=== PATIENT | male | born 1930 | race Caucasian/White ===

== ENCOUNTER 2016-12-16 07:01 | Inpatient (IN) | payer MEDICARE ==
[~2016-12-16] VITALS: Ht 185.4 cm; Wt 122.5 kg
[~2016-12-16 07:01] MED LIST: ANECREAM5 GM TOP; ANUSOL-HC25 MG PR; CELEBREX200 MG PO; COLACE100 MG PO; COUMADIN5 MG PO; KEFLEX500 MG PO; LEVOTHYROXINE50 MCG PO; METOPROLOL SUCC50 MG PO; METOPROLOL TART25 MG; TRIAMTERENE-HC1 EAC3 PO; WARFARIN SODIU2.5 MG PO
--- NOTE | 2016-12-16 11:27 | NUR ---
PATIENT TO FLOOR FROM ED. DR. GARAY FOUND HX OF SMALL BOWEL OBSTRUCTION, SENT PATIENT FOR KUB RIGHT AWAY AND MADE PATIENT NPO. IMAGING NEGATIVE FOR BOWEL OBSTRUCTION AND PATIENT MADE REGULAR DIET AGAIN. APPEARS TO HAVE PAIN WITH TRANSFERING, VOIDING WELL. NS @125 ML/HR. EATING WELL, NO COMPLAINTS OF NAUSEA OR VOMITING. VS STABLE. SON IN ROOM AT THIS TIME. PATIENT ALERT TO PERSON PLACE AND TIME, HOWEVER POOR HISTORIAN. SKIN INTACT. LAST BM TODAY.
--- NOTE | 2016-12-16 12:37 | EKG ---
[facility] [address] [place], [place] [address] Signed Atrial fibrillation Abnormal ECG No previous ECGs available Confirmed by ANDREW HANCOCK MD ([id number]) on 12/16/2016 12:37:34 PM Electronically Signed By: ANDREW HANCOCK MD 12/16/16 1237 PATIENT NAME: MECCA BENAVIDES JR COST Electrocardiogram DATE OF : 30 PHYSICIAN: ANDREW HANCOCK MD REPORT #: [id number] REPORT IS CONFIDENTIAL AND NOT TO BE RELEASED WITHOUT AUTHORIZATION
--- NOTE | 2016-12-16 14:41 | NUR ---
PT IS SITTING UP IN BED WITH CALL LIGHT IN REACH PT DID NOT EAT MUCH LUNCH BUT ASKED FOR SOME BROTH.
--- NOTE | 2016-12-16 16:27 | NUR ---
Medications reconciled by pharmacist with pharmacy records and patient interview. Patient chronically takes warfarin 2.5mg daily. INR will be monitored by pharmacist
--- NOTE | 2016-12-16 17:03 | NUR ---
PATIENT RESTING IN BED WITH EYES CLOSED, COMPLAINTS OF NOISES IN ROOM. ORIENTED PATIENT TO SOUNDS IN ROOM. APPEARS AAOX3. PATIENT HAS NO COMPLAINTS OF PAIN OR DISCOMFORT. APPEARS COMFORTBEL. TOOK DINNER ORDER.
--- NOTE | 2016-12-16 18:24 | NUR ---
PATIENT TO FLOOR FROM ED, HAS BEEN TOLERATING REG DIET WITH NO NAUSEA OR VOMITING. VOIDING WELL. LUNG SOUNDS CLEAR. IV INFUSING AT 125ML/HR. HAS BEEN CALLING APROPRIATLEY, HOWEVER HAS MOMENTS OF CONFUSION, PLACED BA ON. FAMILY HAS BEEN WITH PATIENT MOST OF DAY. IMAGING NEGATIVE FOR SMALL BOWEL OBSTRUCTIONS, ECHOCARDIOGRAPHY [id number]
--- NOTE | 2016-12-16 18:29 | NUR ---
PT USED BATHROOM THEN RETURNED TO BED PT ASKED FOR LIGHT TO BE TURNED OFF AND BLINDS TO BE CLOSED SO HE COULD SLEEP
--- NOTE | 2016-12-16 19:46 | NUR ---
CONTACTED DR. HANCOCK AND REPORTED PATIENT DECREASE IN COGNITION, APPEARS TO BE VERY CONFUSED, PATIENT STATES " HOW DID YOU GUYS GET TO MY HOUSE?" PATIENT APPEARS CONCERNED. REORIENTED PATIENT TO PERSON PLACE AND TIME. FORGETS WITHINN TWO MINUTES. NEXT SHIFT RN IN ROOM AT THIS TIME, AND AWARE. FOUND IV FLUIDS DISCONNECTED ON THE FLOOR. TOWEL LIGHTLY SATURATED WITH IV FLUIDS. CLEANSED WITH ALCOHOL AND RECONNECTED AND WRAPPED WITH GAUZE.
--- NOTE | 2016-12-16 19:58 | NUR ---
PT WOKE WHEN RECIEVING BEDSIDE REPORT. PT CONFUSED. DISORIENTED TO TIME, PLACE, AND SITUATION. PT PLEASENT, WOULD RE-ORIENT FOR JUST A COUPLE MINUTES AND THEN FORGET AGAIN. BED ALARM ACITVATED. CALL LIGHT IN REACH. WILL MONITOR PT CLOSELY. JOMAR RN NOTIFIED DR HANCOCK.
--- NOTE | 2016-12-16 21:00 | NUR ---
pt has set off bed alarm several times. re-orients to place, time and situation but is forgetful still, he is however better than first coming on to shift. pt is restless, states "i just cant get comfortable." also complaining of noises, one is the iv pump and the other is the ventilation in the hospital, states "it sounds like an airplane landing in my room." pt is pleasent and friendly. bed alarm has gone off several times but mostly due to him moving around in bed. pt has used call light several times also. gave warm blanket. lights off in room and curtain closed per pt request. bed alarm still activated. pt denies pain at this time. call light in reach. will monitor closely. pt has no further needs at this time.
--- NOTE | 2016-12-17 02:06 | NUR ---
PT HAS CALLED AND SET BED ALARM OFF SEVERAL TIMES. URINATES SMALL AMOUNTS FREQUENTLY. PT SEEMS UNSTABLE ON FEET, VERY WEAK TONIGHT. USING 1 PERSON ASSIST TO STAND AT BEDSIDE AND VOID IN URINAL. PT VERY TALKATIVE, TELLS THE SAME STORIES OVER AND OVER. PT PLEASENT, ORIENTED TO SELF AND PLACE NOW. DENIES PAIN, DENIES NAUSEA. CALL LIGHT IN REACH. BED ALARM ACTIVATED.
--- NOTE | 2016-12-17 04:50 | NUR ---
pt awake majority of night. anxious, and unable to sleep. pt confused beginning of shift, took awhile to re-orient. does not use call light appropriatly. bed alarm active all night. pt pleasent and friendly. no complaints of pain or nausea overnight.
--- NOTE | 2016-12-17 06:11 | NUR ---
PT PULLED IV OUT, REPLACED IV, PT TOLERATED WELL. PT COMPLAINED OF 9/10 PAIN IN LEFT ARM, PT GRABBING AT ARM STATING "MY HAND IS TINGLING AND ITS NUMB." PT ALSO DIZZY WHEN STANDING, RN HAD TO PHYSICALLY ASSIST PT TO BED TO KEEP HIM FROM FAINTING. PT REPORTED FEELING FAINT. DR HANCOCK NOTIFIED, TELE AND EKG ORDERED. DR HANCOCK IN TO SEE PT, ALSO ORDERED LABS. WILL CONTINUE TO MONITOR CLOSELY. PT IN BED, TELE IN PLACE. CALL LIGHT IN REACH.
--- NOTE | 2016-12-17 07:34 | NUR ---
critical troponin t recieved from lab, notified dr. vincent.
--- NOTE | 2016-12-17 08:00 | NUR ---
PT AWAKE IN BED, ORIENTED TO SELF AND LOCATION, NOT ORIENTED TO SITUATION OR DATE. PT ASKED THE SAME QUESTIONS REPEATEDLY. DENIES PAIN AT THIS TIME. REPORTS TINGLING/NUMBNESS OF LEFT HAND. TELE #7 ON SHOWING RATE CONTROLLED A-FIB. IV INFUSING WNL. PT DENIES NAUSEA. SON AT BEDSIDE. PT AND SON EDUCATED ON PLAN OF CARE AND TRANSFER TO [facility]. QUESTIONS ANSWERED.
--- NOTE | 2016-12-17 09:25 | NUR ---
PT TRANSFERRED TO [facility] BY GERRI PINA. REPORT GIVEN TO STAN AT [facility].
--- NOTE | 2016-12-17 17:23 | EKG ---
[facility] [address] [place] [address] Signed Atrial fibrillation Abnormal ECG When compared with ECG of 16-DEC-2016 07:12, No significant change was found Confirmed by PALMER GEOREG MD ([id number]) on 12/17/2016 5:22:56 PM Electronically Signed By: PALMER GEORGE MD 12/17/16 1723 PATIENT NAME: MECCA BENAVIDES JR PENN YAN Electrocardiogram DATE OF : 30 PHYSICIAN: PALMER GEORGE MD REPORT #: [id number] REPORT IS CONFIDENTIAL AND NOT TO BE RELEASED WITHOUT AUTHORIZATION
[2017-02-26] MEDS ORDERED: JANTOVEN3 MG PO (14:22)
[2017-03-12] MEDS ORDERED: FUROSEMIDE40 MG PO (15:04)
[2017-03-12] MEDS ORDERED: POTASSIUM CHLO10 ME2 PO (15:05)
== END 2016-12-17 09:25 | disposition short-term general hospital (02) | DRG 309 ==
LOC: ED 07:01 → MS 10:56
PROVIDERS: ADMIT Internal Medicine
DX: I48.2 Chronic atrial fibrillation (principal); N17.9 Acute kidney failure, unspecified; R20.0 Anesthesia of skin; M79.602 Pain in left arm; I95.1 Orthostatic hypotension; E03.9 Hypothyroidism, unspecified; E86.0 Dehydration; Z79.01 Long term (current) use of anticoagulants; Z86.718 Personal history of other venous thrombosis and embolism
CPT/HCPCS: 36415; 71010; 74020; 80048; 80053; 81001; 82607; 82746; 83735; 83880; 84100; 84439; 84443; 84484; 85025; 85610; 86140; 93005; 93010; J2405; J7030; J7040

== ENCOUNTER 2016-12-19 16:20 | Emergency (ER) | payer MEDICARE ==
[~2016-12-19] VITALS: Ht 185.4 cm; Wt 122.5 kg
[2016-12-19] MEDS ORDERED: ASPIR-LOW81 MG PO (17:22)
[2016-12-19] MEDS ORDERED: ATORVASTATIN CA10 MG PO (17:22)
--- NOTE | 2016-12-20 17:16 | EKG ---
[facility] [address] [place] [address] Signed Atrial fibrillation Nonspecific ST abnormality Abnormal ECG When compared with ECG of 17-DEC-2016 05:50, No significant change was found Confirmed by PALMER GEORGE MD ([id number]) on 12/20/2016 5:15:52 PM Electronically Signed By: PALMER GEORGE MD 12/20/16 1716 PATIENT NAME: MECCA BENAVIDES JR BOLEY Electrocardiogram DATE OF : 30 PHYSICIAN: PALMER GEORGE MD REPORT #: [id number] REPORT IS CONFIDENTIAL AND NOT TO BE RELEASED WITHOUT AUTHORIZATION
[2017-02-26] MEDS ORDERED: JANTOVEN3 MG PO (14:22)
[2017-03-12] MEDS ORDERED: FUROSEMIDE40 MG PO (15:04)
[2017-03-12] MEDS ORDERED: POTASSIUM CHLO10 ME2 PO (15:05)
== END 2016-12-19 19:15 | disposition home or self-care (01) ==
LOC: ED 16:20
DX: I20.9 Angina pectoris, unspecified (principal); I48.91 Unspecified atrial fibrillation; I10 Essential (primary) hypertension; E03.9 Hypothyroidism, unspecified; Z86.718 Personal history of other venous thrombosis and embolism; Z90.49 Acquired absence of other specified parts of digestive tract; Z88.0 Allergy status to penicillin; Z79.899 Other long term (current) drug therapy; Z79.82 Long term (current) use of aspirin; Z79.01 Long term (current) use of anticoagulants
CPT/HCPCS: 80053; 84484; 85025; 93005; 93010; 99284

== ENCOUNTER 2017-01-12 13:08 | Emergency (ER) | payer MEDICARE ==
[~2017-01-12] VITALS: Ht 185.4 cm; Wt 122.5 kg
[~2017-01-12 13:08] MED LIST changes: +ASPIR-LOW81 MG PO; +ATORVASTATIN CA10 MG PO
[2017-01-12] MEDS ORDERED: ISOSORBIDE MONO30 MG PO (13:37)
[2017-01-12] MEDS ORDERED: NITROGLYCERIN0.4 MG SL (13:39)
--- NOTE | 2017-01-13 07:26 | EKG ---
[facility] [address] [place] [address] Signed Atrial fibrillation with rapid ventricular response with premature ventricular or aberrantly conducted complexes Nonspecific ST abnormality Abnormal QRS-T angle, consider primary T wave abnormality Abnormal ECG When compared with ECG of 19-DEC-2016 16:24, Vent. rate has increased BY 46 BPM Questionable change in QRS axis ST more depressed in Anterior leads Inverted T waves have replaced nonspecific T wave abnormality in Inferior leads Confirmed by ANDREW HANCOCK MD ([id number]) on 01/13/2017 7:26:08 AM Electronically Signed By: ANDREW HANCOCK MD 01/13/17 0726 PATIENT NAME: MAKAYLA VILLASENORMECCA MCKEE Electrocardiogram DATE OF : 30 PHYSICIAN: ANDREW HANCOCK MD REPORT #: [id number] REPORT IS CONFIDENTIAL AND NOT TO BE RELEASED WITHOUT AUTHORIZATION
--- NOTE | 2017-01-13 07:26 | EKG ---
[facility] [address] [place] [address] Signed Atrial fibrillation with rapid ventricular response Nonspecific ST abnormality Abnormal QRS-T angle, consider primary T wave abnormality Abnormal ECG When compared with ECG of 12-JAN-2017 13:56, (Unconfirmed) No significant change was found Confirmed by ANDREW HANCOCK MD ([id number]) on 01/13/2017 7:26:45 AM Electronically Signed By: ANDREW HANCOCK MD 01/13/17 0726 PATIENT NAME: MECCA BENAVIDES JR ALBERT LEA Electrocardiogram DATE OF : 30 PHYSICIAN: ANDREW HANCOCK MD REPORT #: [id number] REPORT IS CONFIDENTIAL AND NOT TO BE RELEASED WITHOUT AUTHORIZATION
[2017-02-26] MEDS ORDERED: JANTOVEN3 MG PO (14:22)
[2017-03-12] MEDS ORDERED: FUROSEMIDE40 MG PO (15:04)
[2017-03-12] MEDS ORDERED: POTASSIUM CHLO10 ME2 PO (15:05)
== END 2017-01-12 22:48 | disposition short-term general hospital (02) ==
LOC: ED 13:08
DX: R10.9 Unspecified abdominal pain (principal); R79.89 Other specified abnormal findings of blood chemistry; E03.9 Hypothyroidism, unspecified; Z86.718 Personal history of other venous thrombosis and embolism; I48.91 Unspecified atrial fibrillation; Z90.49 Acquired absence of other specified parts of digestive tract; Z88.0 Allergy status to penicillin; Z79.82 Long term (current) use of aspirin; Z79.899 Other long term (current) drug therapy
CPT/HCPCS: 36415; 71010; 74177; 80053; 81001; 83605; 83690; 83880; 84484; 85025; 85610; 85730; 93005; 93010; 96361; 96374; 96375; 99285; G0480; J2270; J7030; Q9967

== ENCOUNTER 2017-01-19 10:39 | Inpatient (IN) | payer MEDICARE ==
[~2017-01-19] VITALS: Ht 185.4 cm; Wt 117.0 kg
[~2017-01-19 10:39] MED LIST changes: +ISOSORBIDE MONO30 MG PO; +NITROGLYCERIN0.4 MG SL
--- NOTE | 2017-01-19 14:40 | NUR ---
PT TO FLOOR WITH SON AND DAUGHTER IN LAW IN WHEELCHAIR. PT ANSWERED MOST QUESTIONS WITH FAMILY FILLING IN AND CORRECTING PT IS PLEASANTLY CONFUSED. FAMILY REPORTS PT SUNDOWNS AT NIGHT AND IS BASICALY A ONE ON ONE AT NIGHT. MOVED PT TO 110. HAS LARGE BRUISE ON RIGHT FOREARM AND SCATTERED BRUISES EVERYWHERE ELSE. FAMILY REPORTS HE HAS NOT HAD A SHOWER SINCE ADMIT TO [facility] AND HE NEEDS ONE.
[2017-01-19] MEDS ORDERED: LIPITOR40 MG PO (15:40)
[2017-01-19] MEDS ORDERED: BAYER CHEWABLE81 MG PO (15:41)
[2017-01-19] MEDS ORDERED: PLAVIX75 MG PO (15:41)
[2017-01-19] MEDS ORDERED: LASIX40 MG PO (15:42)
[2017-01-19] MEDS ORDERED: METOPROLOL TART25 MG PO (15:43)
[2017-01-19] MEDS ORDERED: KLOR-CON M1010 MEQ PO (15:45)
[2017-01-19] MEDS ORDERED: COUMADIN2.5 MG PO (15:45)
--- NOTE | 2017-01-19 15:45 | NUR ---
MED REC COMPLETE WITH [facility] DISCHARGE SUMMARY. PRIOR TO [facility] VISIT PATIENT WAS TAKING: ATORVASTATIN 10 MG DAILY WITH DINNER CELECOXIB 200 MG CAP DAILY LEVOTHYROXINE 50 MCG DAILY AC METOPROLOL 50 MG DAILY TRIAMTERENE-HCTZ 37.5-25 MG DAILY
--- NOTE | 2017-01-19 17:55 | NUR ---
PT TRANSFERED FROM [facility] THIS AFTERNOON. CAME WITH FAMILY IN CAR. FAMILY REPORTS SOME SEVERE SUNDOWNERS AT NIGHT BUT IS FAIRLY ORIENTED DURING DAY. MOVED CLOSER TO NURSE'S STATION. DENIES PAIN. NO IV ACCESS. BLOOD SENT OT LAB. BED ALARM, CHAIR ALARM
--- NOTE | 2017-01-19 19:54 | NUR ---
PATIENT BRUSHED HIS TEETH, WASHED HANDS AND COMB HIS HAIR. CHAIR ALARM ATTACHED.
--- NOTE | 2017-01-19 20:19 | NUR ---
PATIENT WENT TO THE BATHROOM USING WALKER. PATIENT IS IN BED NOW. BED ALARM ON. CALL LIGHT WITHIN REACH.
--- NOTE | 2017-01-19 20:38 | NUR ---
PT ADJUSTING TO NEW ENVIRONMENT, CONT. TO BE FORGETFUL AND IMPULSIVE, FORGETS TO USE CALL LIGHT FOR ASSISTANCE, USING BED AND CHAIR ALARMS FOR SAFETY, COPERATIVE AND PLEASANT WITH CARES, DENIES ANY NEEDS, C/O BACK ACHING, TYLENOL GIVEN FOR COMFORT, SCHEDULEDE HS MEDS TAKEN. STATES HE IS TIRED TONIGHT, ASSISTED TO BED AFTER HS CARES.
--- NOTE | 2017-01-19 21:46 | NUR ---
PT UP ATTEMPTING TO AMBULATE TO THE BATHROOM WITHOUT ASSIST OR WALKER. PT ASSISTED TO BATHROOM. AMBULATED BACK TO BED WITH RN AND FWW. PT VISIBLY SOB. O2 REAPPLIED. PT REPOSITION IN BED FOR COMFORT. CALL LIGHT IN REACH.
--- NOTE | 2017-01-19 23:50 | NUR ---
PATIENT PREFER SITTING ON THE CHAIR. ALARM ON. ICE WATER REFILLED. CALL LIGHT WITHIN REACH INSTRUCTED TO PUSH WHEN NEED HELP.
--- NOTE | 2017-01-20 00:28 | NUR ---
PT HAS BEEN UP AND DOWN FROM BED TO CHAIR SEVERAL TIMES, DOES NOT REMEMBER TO USE CALL LIGHT, BED AND CHAIR ALARMS FOR PT SAFETY, EASILY REDIRECTED. FORGETS HE IS IN THE HOSPITAL. DENIES PAIN AT THIS TIME. CONT. TO MONITOR CLOSELY.
--- NOTE | 2017-01-20 00:41 | NUR ---
PATIENT GOT UP FROM CHAIR AND WENT TO BED. BED ALARM ON. CALL LIGHT WITHIN REACH.
--- NOTE | 2017-01-20 02:35 | NUR ---
CALL PLACED TO DR GEORGE PT CONT. TO GET UP EVERY 30MIN-1HR TO VOID 50-100ML OF URINE. TENDER ACROSS LOWER ABD. RECIEVED ORDER TO STRAIGHT CATH X1 NOW.
--- NOTE | 2017-01-20 02:45 | NUR ---
CATH PLACED EASILY USING STERILE TECHNIQUE. IMMEDIATELY OBTAINED 500ML YELLOW URINE WITH BLADDER SPASMS AND URINE GUSHING AROUND TUBING. OBTAINED APPROX. 700-800ML. PT TOLERATED PROCEDURE WELL. SPOKE WITH DR GEORGE AND RECIEVED ORDER IF PT BECOMES UNCOMFORTABLE AND VOIDING FREQUENCY INCREASES AGAIN, PLACE SEGURA CATH AND LEAVE IN.
--- NOTE | 2017-01-20 02:46 | NUR ---
REPORT FROM MARIBEL Riley RN
--- NOTE | 2017-01-20 02:48 | NUR ---
ASSISTED THE NURSE DOING PROCEDURE.
--- NOTE | 2017-01-20 03:07 | NUR ---
PATIENT CONTINUES TO HAVE URINARY FREQUENCY. UP Q 15MINS TO BATHROOM SINCE STRAIGHT CATH.
--- NOTE | 2017-01-20 03:45 | NUR ---
PATIENT UP TO BATHROOM AGAIN. HAS MEDIUM SIZED STOOL. SEGURA DRAINING URINE. PATIENT C/O "I'VE GOT TO PEE, WHY DO I HAVE TO PEE?"
--- NOTE | 2017-01-20 04:07 | NUR ---
0355 PATIENT UP IN BED AND ASSISTED TO CHAIR. PATIENT AGITATED. 0408 PATIENT UP TO BATHROOM, AGITATED, PULLING AT CATHETER. PATIENT RIPS OXYGEN OFF. "WHAT IS THIS STUFF, WHY DO I NEED THESE, I HAVE TO PEE."
--- NOTE | 2017-01-20 04:10 | NUR ---
CALL PLACED TO DR GEORGE, PT BECOMMING MORE AGITATED SINCE PLACING SEGURA CATHETER. URINE OUTPUT HAS PICKED UP WELL SINCE PLACEMENT OF SEGURA BUT PT IS FORGETFUL AND ANXIOUS WANTS SEGURA OUT. RECIEVED ORDER FOR SEROQUEL 25MG PO X1.
--- NOTE | 2017-01-20 04:56 | NUR ---
PATIENT CONTINUES TO GET UP AND DOWN FROM BED Q 10-15 MINUTES.
--- NOTE | 2017-01-20 06:14 | NUR ---
PATIENT CONTINUES TO GET UP AND DOWN FROM BED. YELLS OUT
--- NOTE | 2017-01-20 07:43 | NUR ---
REPORT RECIEVED FROM SHAHANA GALLARDO. PT IN BED SLEEPING ATT. AFTER LONG NIGHT OF GETTING UP FREQUENTLY AND SEGURA PLACEMENT FOR RETENTION.
--- NOTE | 2017-01-20 07:44 | NUR ---
HAVE BEEN IN THE ROOM >4 TIMES IN LAST 1\2 HOUR FOR PT CALLING OUT HE NEEDS TO GET UP AND URINATE AND VARIOUS OTHER ISSUES. PT NOW UP OT THE CHAIR WITH A CUP OF COFFEE. REPEATEDLY REORIENTED TO THE SEGURA.
--- NOTE | 2017-01-20 07:52 | NUR ---
PT CALLED TO USE THE RESTROOM FOR BOWEL MOVEMENT. ASSISTED PT TO RESTROOM, INSTRUCTED TO LEAVE SEGURA TUBE ALONE. CRACKED DOOR TO BE ABLE TO SEE HIM GET UP AND STRAIGHTENED BED.
--- NOTE | 2017-01-20 08:21 | NUR ---
PATIENT AWAKE IN BED. HELPED NURSE ISELA GET HIS PANTS BACK ON AND WE GOT HIM UP TO THE BATHROOM. HELPED HIM TO HIS CHAIR. FRESH ICE WATER AND COFFEE. CHANGED BEDDING. EMPTYED GARBAGE. PATIENT HAS CALL LIGHT IN REACH.
--- NOTE | 2017-01-20 08:46 | NUR ---
PT SITTING ON SIDE OF BED EATING BREAKFAST. TOOK PILLS WO DIFF. ADULT EDUCATION INSTRUCTOR AT BEDSIDE SITTER. PT REMAINS IMPULSIVE AND WILL NOT FOLLOW DIRECTIONS.
--- NOTE | 2017-01-20 09:09 | NUR ---
FAMILY NOW IN ROOM AND EXPLAINED SEGURA AND LAST NIGHT RESTLESSNESS. THEY SAID HE DID NOT TOLERATE THE SEGURA WELL AT [facility] BUT DEFINETLY GOT WORSE AFTER SEGURA REMOVAL.
--- NOTE | 2017-01-20 10:29 | NUR ---
PT CONTINUES TO BE CONFUSED. FAMILY HAS LEFT AND PT IS TRYING TO GET UP TO USE THE RESTROOM.
--- NOTE | 2017-01-20 11:09 | NUR ---
PT NOW BACK IN CHAIR AFTER CHECKING ON SEGURA TO MAKE SURE IT IS DRAINING. PT CONTINUES TO COMPLAIN OF NEEDING TO PEE. DOZING ON AND OFF.
--- NOTE | 2017-01-20 12:30 | NUR ---
PT SITTING ON EDGE OF BED EATING LUNCH. PT FAMILY IN ROOM. INFORMED OF HIS IMPULSIVENESS TODAY. PT CONTINUES TO STATES HE "JUST DOESN'T FEEL GOOD"
--- NOTE | 2017-01-20 14:36 | NUR ---
PT HAS FAMILY IN ROOM AGAIN. AFTER SLEEPING FOR AWILE PT SEEMS A LITTLE BIT MORE ALERT AND ORIENTED.
--- NOTE | 2017-01-20 14:41 | NUR ---
PATIENT WAS TAKING OFF THE OXYGEN I CLEANED HIS NOSE AND THEN PUT THE OXYGEN BACK ON HE IS CURRENTLY RESTING.
--- NOTE | 2017-01-20 15:22 | NUR ---
PT FAMILY BACK IN ROOM AFTER GETTING PT BACK IN BED. PT UP TO RESTROOM FOR DARK LARGE BM. BED BATH AND SHOWER CAP HAIR WASH DONE. PT ASKED FOR TYLENOL.
--- NOTE | 2017-01-20 15:36 | NUR ---
deepak has been up to the restroom a couple times, he hasnt asked for much assistance, but he has been up and down at least every hour or so.
--- NOTE | 2017-01-20 17:38 | NUR ---
PT RESTLESS AND UP AND DOWN ALL DAY. STARTED ON FLOMAX AND DETROL TODAY. FAMILY IN AND OUT THROUGH OUT DAY. REORIENTED CONTINUALLY. TOOK BRIEF NAP THIS AFTERNOON. 2 LG BM'S. LAST ONE DARK IN COLOR, DO HEMOCCULT ON NEXT ONE. DINNER IN FRIDGE. VS STABLE.
--- NOTE | 2017-01-20 18:15 | NUR ---
PT UP AND DOWN ALL DAY. TOOK SMALL NAP THIS AFTERNOON. 2 LARGE DARK BM. DID NOT EAT DINNER, DRANK ENSURE. FAMILY THROUGH OUT DAY. BP LOW IN AFTERNOON, BETTER THIS EVENING.
--- NOTE | 2017-01-20 21:00 | NUR ---
OUT OF BED BY SELF, TO TOILET. FOUND HIM WITH SEGURA ON THE GROUND AND HIM ON THE TOILET. HAD THE BED ALARM ON PREVIOUSLY. FAMILY HAD LEFT. ASSISTED PT, HE HAD A BM, AND BACK TO BED. REQUESTED WATER, AND BLANKETS. HAD NO COMPLAINTS WHEN RN ASKED. CALL LIGHT WITHIN REACH.
--- NOTE | 2017-01-20 21:33 | NUR ---
NITRO PASTE 1/2 IN APPLIED POST PT COMPLAINT TO DR. GEORGE ABOUT HIS LEFT ARM AND BACK HURTING.
--- NOTE | 2017-01-21 00:23 | NUR ---
PT CALLED OUT, SHAHANA LÓPEZ WENT IN TO CHECK HIM. FOUND HIM SWEATY, COMPLAINING OF CHEST PAIN, DID NOT VOMIT, WAS ASHEN. PT WAS SIT UP IN BED. UNABLE TO GET A BLOOD PRESSURE. NOTIFIED DR. GEORGE OF PT SYMPTOMS, REQUESTED AN EKG TO BE DONE. DR. GEORGE HERE ON FLOOR, MANUAL BP 98/60, EKG PULSE WAS 136
--- NOTE | 2017-01-22 08:17 | EKG ---
[facility] [address] [place] [address] Signed Atrial fibrillation with rapid ventricular response ST depression, consider subendocardial injury Nonspecific T wave abnormality Abnormal ECG When compared with ECG of 12-JAN-2017 15:29, Questionable change in QRS axis T wave inversion now evident in Anterior leads Confirmed by PALMER GEORGE MD ([id number]) on 01/22/2017 8:16:43 AM Electronically Signed By: PALMER GEORGE MD 01/22/17 0817 PATIENT NAME: MECCA BENAVIDES JR Electrocardiogram DATE OF : 30 PHYSICIAN: PALMER GEORGE MD REPORT #: [id number] REPORT IS CONFIDENTIAL AND NOT TO BE RELEASED WITHOUT AUTHORIZATION
--- NOTE | 2017-01-22 08:17 | EKG ---
[facility] [address] [place] [address] Signed Atrial fibrillation with rapid ventricular response Nonspecific intraventricular block Abnormal ECG When compared with ECG of 20-JAN-2017 19:41, (Unconfirmed) Questionable change in QRS duration Confirmed by PALMER GEORGE MD ([id number]) on 01/22/2017 8:17:23 AM Electronically Signed By: PALMER GEORGE MD 01/22/17 0817 PATIENT NAME: MECCA BENAVIDES JR RAFI Electrocardiogram DATE OF : 30 PHYSICIAN: PALMER GEORGE MD REPORT #: [id number] REPORT IS CONFIDENTIAL AND NOT TO BE RELEASED WITHOUT AUTHORIZATION
[2017-02-26] MEDS ORDERED: JANTOVEN3 MG PO (14:22)
[2017-03-12] MEDS ORDERED: FUROSEMIDE40 MG PO (15:04)
[2017-03-12] MEDS ORDERED: POTASSIUM CHLO10 ME2 PO (15:05)
== END 2017-01-21 00:30 | disposition short-term general hospital (02) | DRG 280 ==
LOC: MS 10:39 → CCU 14:42 → MS 16:10 → CCU 01-21 00:30
PROVIDERS: ADMIT Internal Medicine
DX: I13.0 Hypertensive heart and chronic kidney disease with heart failure and stage 1 through stage 4 chronic kidney disease, or unspecified chronic kidney disease (principal); I50.31 Acute diastolic (congestive) heart failure; I21.4 Non-ST elevation (NSTEMI) myocardial infarction; J96.01 Acute respiratory failure with hypoxia; G93.41 Metabolic encephalopathy; R53.81 Other malaise; I25.10 Atherosclerotic heart disease of native coronary artery without angina pectoris; I48.2 Chronic atrial fibrillation; Z86.718 Personal history of other venous thrombosis and embolism; I71.4 Abdominal aortic aneurysm, without rupture; N18.3 Chronic kidney disease, stage 3 (moderate); E03.9 Hypothyroidism, unspecified; D64.9 Anemia, unspecified; D69.6 Thrombocytopenia, unspecified; F03.90 Unspecified dementia, unspecified severity, without behavioral disturbance, psychotic disturbance, mood disturbance, and anxiety; Z79.82 Long term (current) use of aspirin; Z79.01 Long term (current) use of anticoagulants; Z66 Do not resuscitate; G47.00 Insomnia, unspecified; N40.1 Benign prostatic hyperplasia with lower urinary tract symptoms; R33.8 Other retention of urine
CPT/HCPCS: 36415; 71020; 80053; 80069; 83735; 83880; 85610; 93005; 93010

== ENCOUNTER 2017-01-21 00:30 | Inpatient (IN) | payer MEDICARE ==
[~2017-01-21] VITALS: Ht 185.4 cm; Wt 116.6 kg
[~2017-01-21 00:30] MED LIST changes: +BAYER CHEWABLE81 MG PO; +COUMADIN2.5 MG PO; +KLOR-CON M1010 MEQ PO; +LASIX40 MG PO; +LIPITOR40 MG PO; +METOPROLOL TART25 MG PO; +PLAVIX75 MG PO
--- NOTE | 2017-01-21 01:29 | NUR ---
PATIENT TRANSFERRED FROM MED/SURG OVER TO CCU ROOM 128 AT 0030 FOR CHEST PAIN AND RAPID HEART RATE. PT FOUND TO BE IN AFIB WITH RVR. PT HAS CHRONIC AFIB, BUT HEART RATE WAS NOTED TO BE IN THE 120-160s. PT WAS ALSO NOTED TO BECOME DIAPHORETIC, AND COOL TO TOUCH ON THE MEDICAL FLOOR. PT WAS C/O CHEST PAIN AT SOME POINT, HOWEVER PATIENT DENIES HAVING CHEST PAIN NOW. PT WAS RECENTLY AD[facility]ITTED TO [facility] A SWING BED PATIENT S/P CARDIAC CATH OVER AT [facility]. PT HAS SIGNIFICANT BRUISING NOTED ON THE RIGHT INNER FORARM, THAT EXTENDS MIDWAY UP INTO THE RIGHT ARM. PT ALSO NOTED TO HAVE SIGNIFICANT BRUISING ON THE RIGHT FEMORAL AREA, S/P CARDIAC CATH. PT WAS GIVEN A 5 MG IV CARDIZEM BOLUS AT 0043. IV CARDIZEM GTT STARTED AT 5 MG AT 0050. A SECOND IV CARDIZEM BOLUS OF 5 MG WAS GIVEN AT 0105, AND DRIP INCREASED TO 10 MG/HR. PATIENT IS SOMEWHAT SOMNOLENT, BUT DOES AWAKEN. IV STARTED IN RIGHT FOREARM 20 G AND LABS DRAWN AT THE SAME TIME. PT'S FAMILY CALLED TO UPDATE BUT NO ANSWER AT THIS TIME. WILL CONTINUE TO MONITOR CLOSELY.
--- NOTE | 2017-01-21 03:10 | NUR ---
PT VERY RESTLESS AND STATING HE NEEDS TO PEE REPEATEDLY. PT REMINDED THAT HE HAS A SEGURA CATHETER, BUT PT STILL FEELING THE NEED TO VOID VERY STRONGLY. SEGURA EVALUATED TO ENSURE IT WAS DRAINING PROPERLY AND IT DOES SEEM TO BE WORKING WELL. PT WANTING TO GET UP. PT NOTED TO PASS SOME FLATULENCE. PT SAT ON COMMODE WITHOUT ANY RESULTS. PT NOW BACK IN BED AND APPEARS TO BE RESTING. WILL CONTINUE TO MONITOR CLOSELY.
--- NOTE | 2017-01-21 04:07 | NUR ---
CARDIZEM GTT TURNED DOWN TO 5 MG/HR. PT'S HEART RATE RANGING FROM 70-80s, AFIB AT THIS TIME. LAST BP 91/48. PT CONTINUES TO WEAR 2 L NC AND IS SHOWING SIGNS OF POSSIBLY HAVING SLEEP APNEA, WITH SOME SP02 NOTED TO DIP DOWN TO 75% BRIEFLY, BUT THEN SHOOTS BACK UP TO THE MID 90s. PT HAS ALSO BEEN NOTED TO BE TALKING IN HIS SLEEP SOME AND HAVE HEARD HIM CALL OUT FOR FOR MILI AND SIDDHARTH. PT ENCOURAGED TO REST AND TRY AND SLEEP.
--- NOTE | 2017-01-21 04:36 | NUR ---
PATIENT UP TO BEDSIDE AGAIN TO STAND. PT STILL FEELING LIKE HE NEEDS TO PEE. PT GIVEN HIS DETROL DOSE EARLY AT THIS TIME. SEGURA DRAINING CLEAR YELLOW URINE. PT REMAINS ON DILT GTT AT 5 MG/HR. HERAT RATE 70-80s. CONTINUE TO MONITOR.
--- NOTE | 2017-01-21 05:54 | NUR ---
PATIENT CONTINUES TO AWAKEN VERY EASILY AND CALLS OUT FOR HELP. PT HAS BEEN UP TO STAND AT EDGE OF BED X 4-5 TIMES SINCE HE TRANSFERRED OVER HERE FROM MED/SURG. PT REMAINS ON A CARDIZEM GTT AT 5 MG/HR.
--- NOTE | 2017-01-21 06:12 | NUR ---
PATIENT HELPED UP TO CHAIR AT THIS TIME. PT UNABLE TO SLEEP ANY LONGER AND IS VERY UNCOMFORTABLE IN THE BED. TV TURNED ON FOR PATIENT AND PT GIVEN A CUP OF COFFEE AT HIS REQUEST. ENMANUEL PERES
--- NOTE | 2017-01-21 06:46 | NUR ---
PATIENT CONTINUES TO CALL OUT "HELP" WHILE HE HAS HIS EYES OPEN. PT CONTINUES TO BE BOTHERED BY THE SEGURA CATHETER AND STATES HE HAS TO PEE VERY OFTEN. PT'S DAUGHTER SIDDHARTH AND SON MILI WERE BOTH CALLED AND MESSAGES LEFT WITH THEM, HOWEVER NO CALL BACK AT THIS TIME. PT NOW SITTING ON COMMODE AND PT TRYING TO HAVE A BM. PT REMAINS ON CARDIZEM GTT AT 5 MG/HR. OVERALL, PT IS MISERABLE. CONTINUE TO MONITOR.
--- NOTE | 2017-01-21 06:58 | NUR ---
PATIENT NOT ABLE TO HAVE A BM, BUT DARK SMEARS OF A BM NOTED. THIS WAS HEME TESTED AND TESTED POSITIVE FOR BLOOD. DR. GEORGE TO BE NOTIFIED. PT BACK TO BED AT THIS TIME BUT IS VERY EXHAUSTED. CONTINUE TO MONITOR CLOSELY.
--- NOTE | 2017-01-21 10:12 | NUR ---
PT THIS AM HAS BEEN UP TO THE CHAIR TO EAT BKF, BUT DID NOT WANT TO EAT FOOD, BUT DID DRINK AN ENSURE AND SOME WATER. FAMILY IS AT BEDSIDE THIS AM AND ARE VERY HELPFULL WITH HIS MOVEMENT AND CARE. PT IS COOPERATIVE WITH HOSPITAL ROUTINE.
--- NOTE | 2017-01-21 11:20 | NUR ---
NEW IV SITE HAS BEEN STARTED AT THIS TIME, PT HAS BEEN REPOSITION AND AT THIS TIME APPEARS TO BE COMFORTABLE. VIT K HAS BEEN STARTED.
--- NOTE | 2017-01-21 11:50 | NUR ---
cardizem drip was turned off as per ordered
--- NOTE | 2017-01-21 11:51 | NUR ---
unit number one of two PRBC's statred at this time.
--- NOTE | 2017-01-21 12:16 | NUR ---
PT UP TO THE CHAIR AT THIS TIME, CONTIOUES TO FUSS ABOUT THE CATHETER SUCTION SET UP TO HELP PT CLEAR HIS THROAT.
--- NOTE | 2017-01-21 12:20 | NUR ---
UNIT ONE OF PRBC'S INFUSING WELL AT THIS TIME. PT IS TOLERATING WELL SO FAR.
--- NOTE | 2017-01-21 12:47 | NUR ---
PT CONTIOUES TO HAVE A PRODUCTIVE COUGH, BUT UNABLE TO COUGH IT UP. HE DOES USE THE HAND HELD SUCTION THAT WAS SET UP FOR HIM.
--- NOTE | 2017-01-21 13:19 | NUR ---
PT UP FRON CHAIR TO BED THAN BACK TO THE BEDSIDE COMMODE. PT PASSED SOME GAS BUT DID NOT HAVE A BM, HAD A SMEAR IT CONTIOUES TO BE DARK TARY IN COLOR. FAMILY REMAINS at the bedside. CHANGE PT TO FULL LIQUIDS AT THIS TIME.
--- NOTE | 2017-01-21 13:21 | NUR ---
PT WAS RESTING IN BED. FAMILY HAD JUST LEFT. I SAID JOHANNA AND HE MISTOOK ME FOR A DR. I REMINDED HIM WHO I WAS, HE SAID OF COURSE HE KNEW WHO I AM.. GOOD VISIT, PT STRUGGLING COGNITIVELY. HE HAS ENOUGH COPING SKILLS THAT HE CAN COVER-UP FOR HIS LOSS. HAD PRAYER WITH PT, WILL CONTINUE TO FOLLOW
--- NOTE | 2017-01-21 13:30 | NUR ---
CARDIZEM DRIP REMAINS OFF AT THIS TIME. HEART RATE IN THE 88'S AND CONTIOUES TO BE IN A-FIB AT THIS TIME. PT CONTIOUES TO DRINK WATER AND ENSURE, DENIES THE NEED FOR FOOD.
--- NOTE | 2017-01-21 14:09 | NUR ---
CHECKED BACK ON PT-SON MILI AND DAUGHTER SIDDHARTH WERE PRESENT. THEY BOTH FELT THEY UNDERSTOOD THE TREATMENT, AND JUST MENTIONED HOW DIFFICULT THE LAST WEEK HAS BEEN. I REASURRED THEM, EXTENDED A BLESS. PT WAS COMPLAINING OF HIS FEET BEING UNCOMFORTABLE. I SHARED WITH SHAHANA MILLER-SHE WILL TEND TO HIM
--- NOTE | 2017-01-21 15:30 | NUR ---
pt wanting to get out of bed to bedside commode. passed gas, had small smears when cleaned. pt back to bed and states "I just want to sleep" explained this to family and they all left. room lights down and door closed some. pt is across from nurses station and appears to be resting well at this time. 16:30: UNIT 2 COMPLETED AT THIS TIME. PT CONTIOUES TO REST AT THIS TIME.
--- NOTE | 2017-01-21 18:25 | NUR ---
PT HAS TOLERATED HIS BOOLD TRANSFUSION OF PRBC TODAY. FAMILY WAS HERE TILL ABOUT 1600 TODAY AND THEN PT WANTED TO SLEEP AND STAFF ASKED IF FAMILY COULD GIVE HIM A BREAK. PT HAS DONE BETTER WITHOUT FAMILY IN THE ROOM. PT HAS BEEN LESS RESTLESS AND HAS REMAINED IN BED RESTING. HE IS COOPERATIVE WITH HOSPITAL ROUTINE, HE HAS DRANK AN ENSURE FOR DINNER AND IS CURRENTLY WORKING ON HIS SOUP THAT HAS BEEN PLACED IN A CUP FOR HIM.
--- NOTE | 2017-01-21 18:47 | NUR ---
DR BERMUDEZ INTO SEE PT AT THIS TIME, ALL QUESTIONS ANSWERED AT THIS TIME.
--- NOTE | 2017-01-21 20:51 | NUR ---
PATIENT RESTING UPON INITIAL ASSESSMENT IN BED. PT HAS THROWN HIS COVERS OFF OF HIM AND HE IS ASKING "WHAT'S GOING ON OUT THERE? I WAS JUST GOING TO GET UP AND CHECK ON EVERYONE." PT RE-ORIENTED TO HOSPITAL ROOM. PT ABLE TO TO STATE HIS NAME AND , YEAR, AND PLACE CORRECTLY. PT STATES HE FEELS BETTER OVERALL COMPARED TO LAST NIGHT. PT ALSO RECOGNIZED THIS RN AND STATES, "YOU WERE HERE LAST NIGHT WEREN'T YOU?" PATIENT REMAINS IN AFIB, HEART RATE BETTER CONTROLLED TONIGHT. PT HAS SEGURA CATHETER THAT IS DRAINING YELLOW URINE IN COPIOUS AMOUNTS. PT TAKES HIS OXYGEN AND PULSE OX OFF FREQ. SPOT CHECK SHOWS SP02 OF 90-95% ON ROOM AIR. WILL CONTINUE TO MONITOR. PT STILL HAS SOME SLIGHT SWELLING IN LOWER EXT, 1+ GRADE. PT TO RECEIVE ANOTHER 2 UNITS OF PRBCs TONIGHT AFTER HIS REPEAT H/H AFTER THE FIRST 2 UNITS WAS STILL THE SAME LEVELS ESSENTIALLY. PT HAS ONLY HAD 1 DARK TARRY BM TODAY, BUT IS HAVING VERY FOUL SMELLING FLATULENCE. WILL CONTINUE TO MONITOR CLOSELY AND TRY AND HELP PATINT WITH SLEEP TONIGHT IF POSSIBLE.
--- NOTE | 2017-01-21 21:34 | NUR ---
3RD UNIT OF PRBCs STARTED AT 2124. PT WILL HAVE ONE MORE UNIT AFTER THIS ONE. PT CONTINUES TO STRUGGLE TO FALL ASLEEP AND IS VERY RESTLESS. SEGURA DRAINED FOR 1075 ML. PT UP TO STAND AT BEDSIDE AND TOLERATED WELL. PT NOW BACK TO BED. BLOOD INFUSING. CONTINUE TO MONITOR.
--- NOTE | 2017-01-21 22:20 | NUR ---
PT CALLING OUT AND STATES, "I'M JUST SO UNCOMFORTABLE. I CAN'T SLEEP." PT GIVEN 500 MG TYLENOL FOR GENERALIZED DISCOMFORT. A FEW MINUTES LATER, DR. GEORGE UPDATED ON PT'S STATUS AND ORDER REC'D TO GIVE A DOSE OF SONATA AGAIN TONIGHT. WILL CONTINUE TO MONITOR.
--- NOTE | 2017-01-21 23:42 | NUR ---
PATIENT CONTINUES TO NOT SLEEP, NOTED TO BE YELLING OUT, "HEY!". PATIENT FOUND TO BE PULLING AT CATHETER. PT IS DISORIENTED AGAIN AND REMINDED OF HIS HOSPITILIZATION AND THE FACT THAT HE IS RECEIVING A BLOOD TRANSFUSION. PT HELPED TO REPOSITION IN BED.
--- NOTE | 2017-01-22 01:41 | NUR ---
PATIENT NOTED TO HAVE PULLED APART HIS IV TUBING, NEAR HIS IV SITE. PT HAD THEREFORE SPLATTERED BLOOD ALL OVER HIMSELF, HIS GOWN, AND THE BED. PATIENT HELPED UP TO BSC AND WAS ABLE TO HAVE A LARGE, BLACK, TARRY FORMED STOOL WITH A VERY STRONG, FOUL ODOR. PT THEN HELPED BACK TO BED AFTER LINENS CHANGED. PT NOW SEEMING TO REST. BED ALARM ON FOR SAFETY. PT CONTINUES TO REC'D HIS 2ND UNIT OF PRBCs TONIGHT AT A RATE OF 110 ML/HR. CONTINUE TO MONITOR CLOSELY PATIENT IS IMPULSIVE AND HAS A VERY SHORT TERM MEMORY.
--- NOTE | 2017-01-22 03:17 | NUR ---
PATIENT CONTINUES TO BE RESTLESS AND HAS NOT SLEPT MUCH AT ALL TONIGHT, IF ANY. PT MOST RECENTLY STATED, "I WAS THINKING ABOUT GETTING UP AND SEEING WHAT WAS IN THE KITCHEN." PT REMINDED AND REORIENTED THAT HE IS GOING TO HAVE AN EGD TODAY TO [facility] FOR A POTENTIAL ULCER IN HIS STOMACH. PT IS ALMOST FINISHED WITH HIS 2ND UNIT OF BLOOD. BED ALARM REMAINS ON AND FREQ PATIENT CHECKS ARE BEING MADE TO ENSURE HIS SAFETY.
--- NOTE | 2017-01-22 07:30 | NUR ---
Patient sitting up in bed moaning. Patient states, "I can't wait to get the hell out of this place." Patient is pleasantly confused at this time. This RN attempts to re-orient patient. Patient resting in bed, call light in reach.
--- NOTE | 2017-01-22 08:18 | EKG ---
[facility] [address] [place] [address] Signed Atrial fibrillation with premature ventricular or aberrantly conducted complexes Nonspecific ST and T wave abnormality Abnormal ECG When compared with ECG of 21-JAN-2017 00:11, (Unconfirmed) Vent. rate has decreased BY 49 BPM Questionable change in QRS duration Confirmed by PALMER GEORGE MD ([id number]) on 01/22/2017 8:17:46 AM Electronically Signed By: PALMER GEORGE MD 01/22/17 0818 PATIENT NAME: MECCA BENAVIDES JR Electrocardiogram DATE OF : 30 PHYSICIAN: PALMER GEORGE MD REPORT #: [id number] REPORT IS CONFIDENTIAL AND NOT TO BE RELEASED WITHOUT AUTHORIZATION
--- NOTE | 2017-01-22 09:20 | NUR ---
Patient awaits OR with DR Sorto for colonoscopy. Patient is aware he is having a procedure today. Patient has a distended and firm abdomen. Active bowel tones at this time. Patient in afib with heart rate in the 90's. Patient hypotensive at this time. MD is aware.
--- NOTE | 2017-01-22 10:10 | NUR ---
Patient anxious in bed, "I need to get up and get out of this bed." This RN assists patient into chair. Patient one person assist with walker. Patient has visitors in room. Patient requiring one to one care, frequent re-orientation.
--- NOTE | 2017-01-22 10:46 | NUR ---
Dr Schwab notified of hypotension. Patient given 500 ml fluid bolus.
--- NOTE | 2017-01-22 10:55 | NUR ---
500 ML BOLUS GIVEN. PATIENT CONTINUES TO BE HYPOTENSIVE.
--- NOTE | 2017-01-22 10:59 | NUR ---
Called patients son Jesse who is POA. Jesse gives verbal consent for upper endoscopy and RN has patient sign consent with patient's son on speaker phone. Patient is pleasantly confused, but states "i want to get this done"
--- NOTE | 2017-01-22 11:12 | NUR ---
Patient leaves CCU to OR with Sia, OR charge nurse. Updated RN on low blood pressure and fluid bolus given. Also gave phone numbers for patients children who have POA.
--- NOTE | 2017-01-22 11:57 | NUR ---
01/22/17 1157 LaurenceAguilar boudreaux SAT 100, O2 DECREASED TO 6L VIA MASK.
--- NOTE | 2017-01-22 12:25 | NUR ---
PATIENT RETURNS FROM PACU AFTER UPPER ENDOSCOPY. PATIENT HAD GENERAL ANESTHESIA AND IS VERY SLEEPY, AROUSES TO TOUCH AND VOICE.
--- NOTE | 2017-01-22 13:01 | NUR ---
patient continues to cough up white frothy sputum. Called RT to assess patient. RT agrees lungs are CTA. Called Dr Schwab, patient given 40 mg IV lasix.
--- NOTE | 2017-01-22 13:09 | NUR ---
PATIENT CONTINUES TO COUGH UP WHITE FROTHY SPUTUM. PATIENTS DAUGHTER AT BEDSIDE. PATIENT AWAKENS TO COUGH AND CLEAR SECRETIONS.
--- NOTE | 2017-01-22 13:37 | NUR ---
PATIENT MORE ALERT NOW, CONTINUES TO COUGH, ABLE TO USE YANKAR SUCTION TO CLEAR SECRETIONS. PATIENTS DAUGHTER AT BEDSIDE.
--- NOTE | 2017-01-22 13:44 | NUR ---
COUGH CONTINUES. PATIENT OTHERWISE STATES HE FEELS WELL. DENIES PAIN/SOB.
--- NOTE | 2017-01-22 13:56 | NUR ---
PT HAD SCOPE TODAY, NO BLEEDING. DAUGHTER SIDDHARTH IN WITH PT RN RAMONA ROCHA FED HIM HOT TEA, IN BETWEEN COUGHNG AND MOMENTS TO SUCTION MUCUS. PT RESPONDED TO MY PRESENCE-REACHED OUT TO SHAKE MY HAND. WELCOMED ME BEST HE COULD. PT REQUESTED PRAYER, HE THANKED ME. WILL CONTINUE TO FOLLOW
--- NOTE | 2017-01-22 13:59 | NUR ---
patient continues to cough. patient's neighbor in to see him. Patient cannot stop coughing up copious amounts of white frothy sputum.
--- NOTE | 2017-01-22 16:09 | NUR ---
Started blood transfusion. Patient tolerates well. Patient continues to cough, cepacol lozenge given. Patient uses yankar for secretions.
--- NOTE | 2017-01-22 16:26 | NUR ---
PATIENT UP TO CHAIR, 2 PERSON ASSIST, PATIENT SITTING IN CHAIR, BLOOD INFUSING. PATIENTS "GRANDSON" SITTING NEXT TO PATIENT TO ASSIST HIM WITH SUCTION AFTER COUGHING. PATIENT VERY TIRED FROM LONG DAY, NO SLEEP, EXCESSIVE COUGHING.
--- NOTE | 2017-01-22 17:03 | NUR ---
BLOOD TRANSFUSING. PATIENT SITTING UP IN CHAIR. PATIENT COUGHING AND USING YANKAR SUCTION. UPDATED PATIENT'S DAUGHTER ON PLAN OF CARE VIA TELEPHONE.
--- NOTE | 2017-01-22 17:34 | NUR ---
Patient's son at bedside. Updated son and patient on plan of care.
--- NOTE | 2017-01-22 17:50 | NUR ---
Patient up in chair eating dinner. Family in room. Blood infusing.
--- NOTE | 2017-01-22 17:51 | NUR ---
Patient has had a busy day. EGD today and now a blood transfusion. Patient very tired, however returned from OR with a persistant cough and has been unable to rest. Patient has been hypotensive throughout the day, MD is aware of this. Patient recieving blood as labs did not improve after last two transfusions. EGD shows no active bleeding. Patient has had no more stools today. Patient remains pleasantly confused however re-orients easily.
--- NOTE | 2017-01-22 18:25 | NUR ---
PATIENT UP TO BSC TO LARGE FORMED BLACK STOOL. DR GEORGE AWARE. [place] CARE DONE, PATIENT STEADY ON HIS FEET, BACK TO BED WITH 2 PERSON ASSIST.
--- NOTE | 2017-01-22 18:56 | NUR ---
STARTED SECOND UNIT OF BLOOD. PATIENT TOLERATING WELL. MD UPDATED ON LOW BP. NO NEW ORDERS. FAMILY MEMBERS AT BEDSIDE.
--- NOTE | 2017-01-22 19:41 | NUR ---
REPORT RECEIVED FROM NARCISO HARKINS. PTS FAMILY AND VISITORS HAVE LEFT, ALONE IN BED NOW, IN VIEW OF NURSES STATION, BED ALARM ON. 2ND UNIT OF PRBC'S INFUSING WITHOUT PROBLEMS. PT DENIES PAIN OR NEEDS AT THIS TIME.
--- NOTE | 2017-01-22 20:44 | NUR ---
HS MEDS GIVEN, ASSESSMENT DONE, PT READY TO TRY TO SLEEP FOR THE NIGHT. SECOND UNIT OF BLOOD STILL INFUSING. PT HAS BEEN HAVING FREQUENT COUGHING/CLEARING HIS THROAT WELL, COUGHING UP SOME STUFF AND SPITTING IT INTO [place]. HASNT NEEDED TO USE THE YANKAUER SUCTIONING YET THIS SHIFT.
--- NOTE | 2017-01-22 21:01 | NUR ---
LOPRESSOR GIVEN WITH BP OF 94/54 AND HR 90S AFIB.
--- NOTE | 2017-01-22 22:02 | NUR ---
2ND UNIT OF BLOOD COMPLETE, PT IS RESTFUL, SEEMS TO BE ABLE TO SLEEP A BIT AT THIS TIME.
--- NOTE | 2017-01-22 22:27 | NUR ---
PT A BIT RESTLESS, HELPED TO REPOSITION IN BED, TRYING TO GO BACK TO SLEEP.
--- NOTE | 2017-01-23 03:45 | NUR ---
PT RESTLESS, ASSISTED TO SIT UP IN CHAIR. SEEMS MORE COMFORTABLE. IN VIEW OF NURSES STATION.
--- NOTE | 2017-01-23 04:53 | NUR ---
BACK TO BED, BED ALARM ON.
--- NOTE | 2017-01-23 06:48 | NUR ---
DR MATHEW IN TO SEE PT.
--- NOTE | 2017-01-23 07:38 | NUR ---
in room for morning assessment. discussed plan of care. daughter in room. pt stated, "im starting to feel much better."
--- NOTE | 2017-01-23 08:05 | NUR ---
in room with pt. discussed transfering pt to medical floor today.
--- NOTE | 2017-01-23 08:31 | NUR ---
PT RESTING IN BED WITH BED ALARM IN PLACE. VISIBLE FROM NURSES STATION.
--- NOTE | 2017-01-23 10:14 | NUR ---
pt bp low. notified md. will keep pt in ccu and take hourly vitals for now.
--- NOTE | 2017-01-23 10:30 | NUR ---
IN ROOM WITH QUALITY INTERN TO PROVIDE BED BATH. CATH CARE COMPLETED AT THIS TIME. PT ENJOYED BED BATH. STATED, "THIS IS GREAT."
--- NOTE | 2017-01-23 11:38 | NUR ---
PT RESTING IN BED VISITING WITH GRANDSON. PT REMAINS HYPOTENSIVE. BP EVERY HOUR UNTIL IMPROVED.
--- NOTE | 2017-01-23 12:38 | NUR ---
ABDULLAHI RIBERA IN WITH PT. HE WELCOMED ME INTO HIS RM. WE SHOOK HANDS. HE TOLD ME IT HAS BEEN ROUGH-LAST NIGHT AND THIS MORNING. COGNITIVE ABILITIES SEEM SHARPER TODAY, NOT MUCH COUGHING OR NEEDING TO SUCTION. 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 STRUGGLING WITH THE BREAKDOWN OF HIS BODY. REQUESTED PRAYER, WILL CONTINUE TO FOLLOW
--- NOTE | 2017-01-23 13:03 | NUR ---
PT TRANSFERED FROM CHAIR BACK TO BED. 2 PERSON ASSIST. PT SHORT OF BREATH WITH EXCERTION. ONCE BACK IN BED. SATS 90% ON RA. VISITOR IN ROOM. BED ALARM IN PLACE.
--- NOTE | 2017-01-23 13:22 | NUR ---
PT APPEARS TO BE AGGITATED THIS AFTERNOON. ATTEMPTING TO GET OUT OF BED. VISITOR IN ROOM REMINDING PT TO STAY IN BED. BED ALARM IN PLACE. VISIBLE FROM NURSES STATION.
--- NOTE | 2017-01-23 13:30 | NUR ---
SPOKE WITH MD REGARDING PTS AGGITATION.
--- NOTE | 2017-01-23 13:50 | NUR ---
PT AGGIATED AND PULLING AT SEGURA. RE-ORIENTED PT. PT STATED, "I HAVE TO GO TO THE BATHROOM." ASKED PT IF HE NEED TO HAVE A BOWEL MOVEMENT. PT STATED, "YES". UP TO BESIDE COMMODE WITH 2 PERSON ASSIST. PT HAD LARGE BOWEL MOVEMENT. STOOL WAS DARK IN COLOR. BACK TO BED WITH BED ALARM IN PLACE. PT LESS AGGITATED ONCE BACK IN BED.
--- NOTE | 2017-01-23 14:14 | CONS ---
[facility] [address] [place], [place] [address] Signed DATE OF CONSULTATION: 01/21/17 REFERRING PHYSICIAN: Juanjose Schwab MD CHIEF COMPLAINT: Melena. HISTORY OF PRESENT ILLNESS Mecca is an 86-year-old gentleman who recently had a non-STEMI in December 2016, had a couple of cardiac stents placed, now he is on Coumadin because of atrial fibrillation along with aspirin and Plavix. He came back in the hospital with what sounds like AFib and rapid ventricular heart rate and was noted to have melena. He was anemic with a hemoglobin of 7.9. His INR was up at 4.7. 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 He has been in the ICU today. He has received 2 units of packed red blood cells and his vitamin K seems to be hemodynamically stable. PAST MEDICAL HISTORY Acute myocardial infarction in December 2016, diastolic heart failure, dementia, insomnia, coronary artery disease, atrial fibrillation, right lower extremity DVT, thoracic aneurysm, chronic renal insufficiency, hypothyroidism, anemia, thrombocytopenia, diverticul sis. PAST SURGICAL HISTORY Cardiac stents, bilateral knee replacements, cholecystectomy, tonsillectomy adenoidectomy and appendectomy. SOCIAL HISTORY Never smoked. He drinks once in a while. He is DNR/DNI. His daughter is Norma Malagon at [phone] Dr. Manny Coats is his primary care provider. Dr. Jaylon Yepez is his residential pest control technician. He prefers to [facility]. FAMILY HISTORY: Not reviewed. REVIEW OF SYSTEMS: Not reviewed with Mecca today. ALLERGIES: Penicillin. MEDICATIONS Nitroglycerin, Levothyroxine, Isosorbide Mononitrate, Atorvastatin, Aspirin, Plavix, Coumadin, Lasix, Metoprolol and Potassium Chloride. PHYSICAL EXAMINATION VITAL SIGNS: His blood pressure is 96/71, heart rate 88, respiratory rate 25, his temperature is 97.7. He is 95% on room air. He is 6 feet 1 inch at 117 kg. Electronically Signed By: DAQUAN BERMUDEZ MD 01/23/17 1414 PATIENT NAME: MECCA BENAVIDES JR CONSULTATION DATE OF : 30 PHYSICIAN: DAQUAN BERMUDEZ MD REPORT #: [id number] REPORT IS CONFIDENTIAL AND NOT TO BE RELEASED WITHOUT AUTHORIZATION [address] [address] Signed GENERAL Mecca is an 86-year-old gentleman lying supine semi-recumbent in his ICU bed. He seems to be alert and awake and interactive, but he is little demented. LUNGS: Clear to auscultation bilaterally. HEART: Irregularly irregular. ABDOMEN: Soft, nondistended. RECTAL: Not repeated. LABORATORY DATA His white count is 8.7; hemoglobin 7.9, it is now 7.7; mean cell volume is 102; platelets 176. BUN 71, creatinine 1.15. INR 4.7. Liver function tests negative. Albumin is 2.8. His magnesium is 1.8. ASSESSMENT AND PLAN Mecca is an 86-year-old gentleman who presents with atrial fibrillation and rapid ventricular heart rate. However, is on triple anticoagulants now and has melena with anemia. He has received 2 units of red cells and some vitamin K. He seems to be doing well today. We are planning on doing an upper endoscopy tomorrow with our anesthesia providers to help us with increased monitoring sedation. I have reviewed this with Mecca. He has expressed understanding and would like to proceed. MD AURORA Collado/Leilanil /[id number] cc: MD Jaylon Rodriguez MD Electronically Signed By: DAQUAN BERMUDEZ MD 01/23/17 1414 PATIENT NAME: MECCA BENAVIDES JR CONSULTATION DATE OF : 30 PHYSICIAN: DAQUAN BERMUDEZ MD REPORT #: [id number] REPORT IS CONFIDENTIAL AND NOT TO BE RELEASED WITHOUT AUTHORIZATION
--- NOTE | 2017-01-23 14:14 | OR ---
[facility] [address] [place], [place] [address] Signed DATE OF PROCEDURE: 01/22/17 PREOPERATIVE DIAGNOSES Melena. Anemia. Acute myocardial infarction, January 19, 2017. Recent cardiac stents x2. Anticoagulated with Coumadin, Plavix, and aspirin. POSTOPERATIVE DIAGNOSIS Mild punctate hemorrhagic gastroduodenitis. PROCEDURES: Esophagogastroduodenoscopy without biopsy. ESTIMATED BLOOD LOSS: None. INDICATIONS Mecca is an 86-year-old, demented gentleman who suffered acute myocardial infarction at the end of December 2016. Subsequently, he had 2 cardiac stents placed. He has been on Coumadin along with his Plavix and aspirin because of his atrial fibrillation and his new cardiac stents. He has also had a previous deep vein thrombosis in his right lower extremity. He is known to have diastolic heart failure. He had developed a rapid ventricular rate and was having melena. He was admitted to our Internal Medicine service in the CCU. 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 He had been stable throughout the day and I had met with him late in the evening. We discussed upper endoscopy in detail. He understands the nature of the test along with the risks including, but not limited to gas, bloating, crampy abdominal pain, bleeding, perforation, requiring surgery, and missed diagnosis. He also understands given his age and advanced medical conditions that he is high risk including . Because of his advanced medical conditions, we asked that anesthesia provider help us with increased monitoring and sedation. Mecca had expressed understanding wished to proceed. DESCRIPTION OF PROCEDURE Mecca was taken into our endoscopy suite and placed in the supine position under general endotracheal tube anesthesia per nurse freezing machine operator. The adult gastroscope was introduced and advanced under direct visualization camera out into the third portion of the duodenum under direct visualization of camera without difficulty. He had a little fluid and a pill on his duodenal but otherwise it was quite healthy. We could see the ampulla of Otter and it seemed healthy. The pyloric channel itself showed a little bit of irritation but no ulceration. Back in the stomach, he did have some areas of punctate hemorrhagic gastritis spread throughout his stomach. No obvious ulcerations and no Electronically Signed By: DAQUAN BERMUDEZ MD 01/23/17 1414 [facility] OPERATIVE REPORT DATE OF : 30 PHYSICIAN: DAQUAN BERMUDEZ MD REPORT #: [id number] REPORT IS CONFIDENTIAL AND NOT TO BE RELEASED WITHOUT AUTHORIZATION [facility] [address] [place], [place] [address] Signed active bleeding at this time. The scope had been retroflexed and we did not see an obvious hiatal hernia. The scope was withdrawn up through the area of the GE junction, which is compliant without stricture. There was just a little bit of irritation around the Z-line but no obvious Kaur's mucosa, no distal esophagitis. The middle and upper esophagus were unremarkable. After this, the gas was suctioned out and the gastroscope removed. Mecca tolerated the procedure quite well. RECOMMENDATIONS Mecca will be returned to the CCU under the care of the Internal Medicine Service. We will go ahead and put him on full liquid diet and resume his previous medications. MD AURORA Collado/Modl /[id number] cc: MD Manny Sherman MD Electronically Signed By: DAQUAN BERMUDEZ MD 01/23/17 1414 PATIENT NAME: MECCA BENAVIDES JR OPERATIVE REPORT DATE OF : 30 PHYSICIAN: DAQUAN BERMUDEZ MD REPORT #: [id number] REPORT IS CONFIDENTIAL AND NOT TO BE RELEASED WITHOUT AUTHORIZATION
--- NOTE | 2017-01-23 14:56 | NUR ---
IN ROOM WITH PT.
--- NOTE | 2017-01-23 15:40 | NUR ---
notified md up pts blood pressures dropping into the 80's systolic. 500ml fluid bolus ordered. hold off on transfer for now.
--- NOTE | 2017-01-23 15:50 | NUR ---
OT IN ROOM WITH PT.
--- NOTE | 2017-01-23 16:16 | NUR ---
PHYSICAL THERAPY IN ROOM WITH PT
--- NOTE | 2017-01-23 16:45 | NUR ---
SPOKE WITH CONCERNING PTS INCREASE IN AGGITATION. ORDERED SEROQUEL AT THIS TIME.
--- NOTE | 2017-01-23 18:45 | NUR ---
PT TO FLOOR VIA BED WITH EDILIA AND THIS RN. REPORT FROM SHAHANA NETTLES. PT HAS DAUGHTER AND SON IN LAW WITH HIM. PT CONFUSED BUT PLEASANT AT THIS TIME. PLACED WARM BLANKET AND PT FELL ASLEEP. SEGURA DRAINING LIGHT YELLOW URINE. PT DENIES PAIN. ONE IV IN LEFT FORE ARM SL.
--- NOTE | 2017-01-23 19:00 | NUR ---
RECEIVED REPORT FROM RN. PATIENT IS RESTING COMFORTABLY IN BED. BREATHING IS EVEN AND UNLABORED. BED ALARM ON, CALL LIGHT IN PLACE.
--- NOTE | 2017-01-23 19:42 | NUR ---
PATIENT IN BED ASLEEP. WHITEBOARD UPDATED, ROOM TIDIED.
--- NOTE | 2017-01-23 19:55 | NUR ---
IN TO ROOM, PT ATTEMPTING TO GET OOB. PT STATES HE NEEDS TO "USE THE TOLIET." PT REORIENTED TO SEGURA PLACEMENT. PT SITTING AT EDGE OF BED. PT DROWSY AND SPEECH IS DIFFICULT TO UNDERSTAND AT TIME. WATER GIVE. NO FURTHER NEEDS. PT IN BED. SON AT BEDSIDE. ALL 4 SIDE RAILS UP AND BED ALARM IN PLACE. CALL LIGHT IN REACH.
--- NOTE | 2017-01-23 20:55 | NUR ---
IN TO PT ROOM, PT ATTEMPTING TO GET UP. PT ASKING TO SIT AT THE EDGE OF THE BED. PT BACK TO BED. REPOSITIONED IN BED FOR COMFORT. NO FURTHER NEEDS AT THIS TIME. ALL FOR SIDERAILS IN PLACE, BED ALARM ON. NO FURTHER NEEDS AT THIS TIME.
--- NOTE | 2017-01-23 21:55 | NUR ---
PATIENT IS RESTING COMFORTABLY IN BED. BREATHING IS EVEN AND UNLABORED. ASSESSMENT DONE, EVENING MEDICATIONS GIVEN.
--- NOTE | 2017-01-23 23:16 | NUR ---
SPOKE WITH DR. GEORGE REGARDING PATIENT'S INABILITY TO SLEEP. PATIENT HAS BEEN GETTING OUT OF BED EVERY [address] GEORGE ORDERED SONATA 10MG PO ONCE.
--- NOTE | 2017-01-23 23:45 | NUR ---
GAVE PATIENT ONE TIME DOSE OF SONATA DUE TO INABILITY TO SLEEP. PATIENT IS NOW RESTING COMFORTABLY IN BED. BED ALARM ON, CALL LIGHT WITHIN REACH.
--- NOTE | 2017-01-23 23:58 | NUR ---
PATIENT SLEEPING, NURSE IN ROOM.
--- NOTE | 2017-01-24 01:15 | NUR ---
PATIENT UP TO BATHROOM WITH 1PA/FWW/NON-SLIP SOCKS. PATIENT IS NOW RESTING COMFORTABLY IN BED. BED ALARM ON.
--- NOTE | 2017-01-24 02:48 | NUR ---
BED ALARM WENT OFF. NURSE IN ROOM.
--- NOTE | 2017-01-24 02:54 | NUR ---
PATIENT ATTEMPTED TO GET OUT OF BED STATING "I HAVE TO PEE." REMINDED PATIENT THAT HE HAS A CATHETER DRAINING HIS URINE. PATIENT IS NOW RESTING COMFORTABLY IN BED. BED ALARM ON.
--- NOTE | 2017-01-24 06:06 | NUR ---
PATIENT HAS BEEN SLEEPING OFF AND ON THROUGHOUT SHIFT. HE FREQUENTLY ATTEMPTED TO GET OUT OF BED, FORGETTING THAT HE HAS A CATHETER. DUE TO FORGETFULLNESS AND IMPULSIVENESS, BED ALARM HAS BEEN ON FOR SAFETY. PATIENT CONTINUES TO HAVE MELENA (X3 THIS SHIFT). VSS, NO COMPLAINTS OF PAIN. NO ACUTE CHANGES FROM BEGINNING OF SHIFT ASSESSMENT. INTENTIONAL ROUNDING DONE WITH ALL PATIENT'S NEEDS MET.
--- NOTE | 2017-01-24 07:00 | NUR ---
BEDSIDE REPORT RECEIVED FROM SHAHANA ORTIZ, ASSUMED CARE OF PT. PT SLEEPING, BREATHING AND MOVING ARMS AND LEGS. BED ALARM SET. WILL CONTINUE TO MONITOR.
--- NOTE | 2017-01-24 08:28 | NUR ---
PT CONTINUES TO SLEEP. CURTAIN OPEN FOR VIEW FROM NURSES STATION. BED ALARM IN PLACE.
--- NOTE | 2017-01-24 11:19 | NUR ---
Patient's daughter visited briefly this morning around breakfast. Shortly after breakfast the patient was up and moving with physical therapy. Patient started getting tired and anxious while working with the physical therapist. Patient is now sitting up and resting in his chair with the chair alarm on. Call light and bedside table within reach. Patient stated he did not need anything at that time.
--- NOTE | 2017-01-24 11:20 | NUR ---
PT MORNING ASSESSMENT COMPLETE. ASSISTED PT BACK TO BED. PT NAUSEOUS, ADMINISTERED PRN ZOFRAN, PT GIVEN EMESIS BAG, SAT UP. PT COMPLAINING OF DRYNESS IN THROAT, GIVEN FRESH ICE WATER FROM LEAD MAINTENANCE TECHNICIAN FREDY. PT LUNGS CLEAR THROUGHOUT, OCCASIONAL COUGH. PT HAS BRUISING ON RIGHT INNER THIGH, RIGHT ARM FROM PREVIOUS PROCEDURE. PT EDUCATED BARREL POLISHER LIGHT USE, BED ALARM NOT WORKING, PT CURTAIN OPEN TO VIEW FROM NURSES STATION. WILL CONTINUE TO MONITOR.
--- NOTE | 2017-01-24 11:50 | NUR ---
DR. GEORGE IN PT ROOM TO ASSESS PT. PT ORIENTED TO PLACE AND PERSON, FALLS ASLEEP WHEN ASKED DATE. PT DROWSY, DR. GEORGE TO D/C MEDS, TRY TO GET PT ON REGULAR SLEEP CYCLE. PT BED ALARM NOW SET. WILL CONTINUE TO MONITOR.
--- NOTE | 2017-01-24 12:29 | NUR ---
PT AWAKE IN ROOM. AM CARE. TOOK FRESH ICE WATER AND COFFEE.
--- NOTE | 2017-01-24 12:31 | NUR ---
Moved patient up in bed before he ate lunch. Assisted patient with eating lunch. Lunch was well tolerated with about 40% intake. Patient is now resting with call light in reach and bed alarm on.
--- NOTE | 2017-01-24 13:05 | NUR ---
DR. MATHEW IN PT ROOM. REQUESTING PYRIDIUM FOR PT DUE TO DISCOMFORT W CATHETER, URINATION. CHARGE NURSE PHONED DR. GEORGE, TELEPHONE ORDER RECEIVED.
--- NOTE | 2017-01-24 13:58 | NUR ---
PT SITTING IN CHAIR. NOT ALERT AND LITTLE ORIENTATION IF ANY. DIMINISHED COGNITIVE ABILITY FROM YESTERDAY. NO RECOGNITION WHO I WAS TODAY. RN STATED HE GOT LITTLE SLEEP LAST NIGHT. PT NODDED OFF WHILE I WAS WITH HIM. OFFERED A PRAYER. WILL CONTINUE TO FOLLOW
--- NOTE | 2017-01-24 15:15 | NUR ---
AFTERNOON ASSESSMENT COMPLETE. PT COMPLAINING OF BACK PAIN. ADMINISTERED 500 MG ACETAMINOPHEN, ASSISTED PT TO REPOSITION IN CHAIR. PT CONFUSED, STATING HE HAS TO PEE, REEDUCATED ON CATHETER PRESENCE. PT IS VERY DROWSY, FELL ASLEEP MULTIPLE TIMES DURING ASSESSMENT. PT'S LUNGS CLEAR THROUHGOUT ALL LOBES. PT HAD BM TODAY, NO NAUSEA REPORTED AT THIS TIME. CHAIR ALARM IN PLACE. GAVE PT CALL LIGHT AND INSTRUCTED HIM ON USE.
--- NOTE | 2017-01-24 16:16 | NUR ---
Patient ambulated with assistance to the bathroom. Complains of having to urinate even with the diego intact. Patient is now back in bed with bed alarm on and call light in reach.
--- NOTE | 2017-01-24 18:35 | NUR ---
PT HAS BEEN DROWSY THROUHGOUT SHIFT, FALLING ASLEEP MID CONVERSATION. PT HAS BEEN CONFUSED, FORGETFUL OF CATHETER THROUGHOUT SHIFT. PT ALERT AND ORIENTED X 2, NOT TO EXACT DATE/YEAR. BED ALARM AND CHAIR ALARM IN USE, PT DOES NOT USE CALL LIGHT APPROPRIATELY. PT RECEIVED PRN 500 MG ACETAMINOPHEN FOR BACK PAIN. LUNGS HAVE BEEN CLEAR THROUGHOUT SHIFT. PT HAD BM X 2 THIS SHIFT. FAMILY HAS BEEN IN TO SEE PT TODAY.
--- NOTE | 2017-01-24 20:00 | NUR ---
pATIENT REST QUIETLY IN BED WATCHING TV.
--- NOTE | 2017-01-24 22:00 | NUR ---
PATIENT RESTING QIETLY IN BED SUPINE EYES CLOSED AND RESPIRATION EVEN AND UNLABORED.
--- NOTE | 2017-01-25 00:13 | NUR ---
PATIENT RESTING QUEITLY IN BED EYES OPEN, RESPIRATIONS EVEN AND UNLABORED.
--- NOTE | 2017-01-25 00:42 | NUR ---
IN TO CHECK ON PT, PT UO OOB AMBULATING WITH WALKER. PT STATES "I HAVE TO PEE." REORIENTED TO CATH PLACEMENT. ASSISTED PT BACK TO BED. [place] CARE DONE, GOWN CHANGED. PT IN BED RESTING. ALL SIDE RAILS UP AND BED ALARM ON. NO FURTHER NEEDS AT THIS TIME. CALL LIGHT IN REACH.
--- NOTE | 2017-01-25 02:10 | NUR ---
PATIENT RESTING QUIETLY WITH EYES CLOSED, RESPIRATIONS EVEN AND UNLABORED.
--- NOTE | 2017-01-25 04:11 | NUR ---
PATIENT RESTING QUIETLY SUPINE, EYES CLOSED, RESPRATIONS REGULAR AND UNLABORED.
--- NOTE | 2017-01-25 05:01 | NUR ---
PATIENT HAS HAD A MUCH MORE PEACEFUL NIGHT THAN THE THE LAST NIGHT I WORKED ON 01/19/17. HE HAS RESTED MOST OF THE NIGHT ONLY GETTING UP A COUPLE TIMES THINKING HE NEEDED TO PEE AND FORGETTING HE A CATHETER I HIS BLADDER. SALINE LOCK IN THE RAC WHICH FLUSHES WELL. I THINK THE AZO HAS ALSO HELPED HIM A GREAT DEAL WITH THE DISCOMFORT OF THE URINARY CATHETER. 2 PERSON ASISST IF HE NEEDS TO GET UP. HE IS ON ASPIRATION PRECAUTIONS. HE REFUSED A SHOWER YESTERDAY. HAD A LARGE BM YESTREDAY BEFORE MY SHIFT.
--- NOTE | 2017-01-25 06:24 | NUR ---
PATIENT RESTING SUPINE IN HIS BED AWAKE AND HAS JUST TAKEN HIS AM MEDS, PATIENT STILL FORGETS HE HAS A CATHETER.
--- NOTE | 2017-01-25 07:10 | NUR ---
BEDSIDE REPORT RECEIVED FROM SHAHANA SONG. PT AWAKE IN BED STATING HE'S HUNGRY. IV SITE ASSESSED, APPEARS TO BE LEAKING, HARDENED AREA ABOVE INSERTION SITE. IV FLUIDS STOPPED. FLOAT NURSE IN ROOM TO START IV. SUCCESSFUL START IN RIGHT FOREARM, IV FLUID BOLUS INFUSING. PT GIVEN FRESH COFFEE, SAT UP IN BED. CALL LIGHT IN REACH. BED ALARM SET.
--- NOTE | 2017-01-25 08:00 | NUR ---
ASSISTED TO RESPOSITION PT IN BED, PT STATING HE'S UNCOMFORTABLE. WILL CONTINUE TO ASSESS.
--- NOTE | 2017-01-25 10:45 | NUR ---
PT USED CALL LIGHT APPROPRIATELY, STATING HE NEEDS TO PEE. REMINDED PT OF URINE CATHETER, ASSESSED, CATHETER DRAINING URINE EFFECTIVELY. CALL LIGHT IN REACH.
--- NOTE | 2017-01-25 10:55 | NUR ---
DR. BERMUDEZ IN TO SEE PT, VERBAL ORDER TO ADVANCE PT DIET TOLERATED. PT ASSESSMENT COMPLETE. PT DENIES PAIN, DENIES NAUSEA. PT ALERT AND ORIENTED X 2, DOES NOT KNOW EXACT DATE. PT CONTINUES TO BE DROWSY, BUT HOLDS CONVERSATION WITH DR. BERMUDEZ AND RN. PT UP IN CHAIR, ON 1 L O2 SPO2 WAS 90% AT VITAL CHECK, PT NO SATURATING AT 98% ON 1L NC. AM CARE PROVIDED FOR PT, BRUSHED TEETH, WASHED FACE. PT REFUSED SHOWER AT THIS TIME, MADE PLAN TO SHOWER THIS AFTERNOON WHEN PT GETS PT UP. WILL CONTINUE TO MONITOR. CHAIR ALARM IN PLACE, CALL LIGHT WITH PT.
--- NOTE | 2017-01-25 12:57 | NUR ---
RESPONDED TO CHAIR ALARM IN PT ROOM. PT REQUESTING TO GET BACK TO BED. ASSISTED PT TO BED WITH 2PA AND FWW. PT AMBULATED WELL. PT NOW BACK IN BED, ON ROOM AIR, BED ALARM SET, PT SLEEPING. CALL LIGHT IN REACH, WILL CONTINUE TO MONITOR.
[2017-02-26] MEDS ORDERED: JANTOVEN3 MG PO (14:22)
[2017-03-12] MEDS ORDERED: FUROSEMIDE40 MG PO (15:04)
[2017-03-12] MEDS ORDERED: POTASSIUM CHLO10 ME2 PO (15:05)
== END 2017-01-25 11:35 | disposition swing bed (61) | DRG 308 ==
LOC: CCU 00:30 → MS 01-23 18:36
PROVIDERS: ADMIT Internal Medicine
PROC: 0DJ08ZZ Inspection of Upper Intestinal Tract, Via Natural or Artificial Opening Endoscopic (ICD-10-PCS; principal; 2017-01-19)
PROC: 30233N1 Transfusion of Nonautologous Red Blood Cells into Peripheral Vein, Percutaneous Approach (ICD-10-PCS; 2017-01-22)
DX: I48.2 Chronic atrial fibrillation (principal); K29.61 Other gastritis with bleeding; J96.01 Acute respiratory failure with hypoxia; I50.31 Acute diastolic (congestive) heart failure; G93.41 Metabolic encephalopathy; K29.81 Duodenitis with bleeding; K92.1 Melena; I13.0 Hypertensive heart and chronic kidney disease with heart failure and stage 1 through stage 4 chronic kidney disease, or unspecified chronic kidney disease; I25.2 Old myocardial infarction; Z79.01 Long term (current) use of anticoagulants; Z79.82 Long term (current) use of aspirin; F03.90 Unspecified dementia, unspecified severity, without behavioral disturbance, psychotic disturbance, mood disturbance, and anxiety; G47.00 Insomnia, unspecified; I25.10 Atherosclerotic heart disease of native coronary artery without angina pectoris; Z86.718 Personal history of other venous thrombosis and embolism; E03.9 Hypothyroidism, unspecified; D64.9 Anemia, unspecified; Z66 Do not resuscitate; N40.1 Benign prostatic hyperplasia with lower urinary tract symptoms; R33.8 Other retention of urine; N18.3 Chronic kidney disease, stage 3 (moderate)
CPT/HCPCS: 00740; 36415; 36430; 80048; 80053; 83735; 84100; 85025; 85610; 85730; 86850; 86900; 86901; 86920; 93005; 93010; 97110; 97116; 97162; 97166; 97530; J2405; J2704; J3430; J3475; J7120; P9016

== ENCOUNTER 2017-01-25 11:35 | Inpatient (IN) | payer MEDICARE ==
[~2017-01-25] VITALS: Ht 185.4 cm; Wt 116.6 kg
--- NOTE | 2017-01-25 11:30 | NUR ---
DR. GEORGE IN TO SEE PT. PT UP IN CHAIR. ORDER TO D/C SEGURA CATHETER. STUDENT NURSE DAPHNE D/C SEGURA CATHETER. PT TOLERATED WELL. PT DIET WAS ADVANCED TO REGULAR TOLERATED, PT ATE 90% OF [place] AND [place] WELL 100% OF FULL LIQUID TRAY. PT RESTING IN CHAIR, CHAIR ALARM IN PLACE. WILL CONTINUE TO MONITOR, CALL LIGHT IN REACH.
--- NOTE | 2017-01-25 12:58 | NUR ---
RESPONDED TO CHAIR ALARM, PT REQUESTING TO GET BACK TO BED. ASSISTED PT TO BED W FWW AND 2PA. PT AMBULATED WELL WITH FWW. PT BACK TO SLEEP, CALL LIGHT NEXT TO PT. BED ALARM SET.
--- NOTE | 2017-01-25 13:04 | NUR ---
STOOD PT UP, PT ATTEMPTED TO URINATE, NOT ABLE TO AT THIS TIME, WILL CONTINUE TO MONITOR. PT NOW BACK TO BED, BED ALARM SET. CALL LIGHT IN REACH.
--- NOTE | 2017-01-25 14:24 | NUR ---
PT RESTING WITH HIS EYES OPEN. HE SAW ME AND MOTIONED ME IN. HE REACHED OUT TO SHAKE MY HAND, AND HELD ON. HE SAID HE IS HAVING A TOUGH TIME GETTING "OVER THE HUMP". I OFFERED TO PRAY FOR HIM-HE KNODDED IN AGREEMENT. THANKED ME, I WILL FOLLOW NEEDED. HE HAD VISITORS WAITING TO SEE HIM
--- NOTE | 2017-01-25 15:45 | NUR ---
BLADDER SCANNED PT PT FLUSHED TOILET WITH PHYSICAL THERAPY, UNKNOWN IF PT PEED, PT SHORT TERM MEMORY IS POOR. BLADDER SCAN REVEALED 51 ML. WILL CONTINUE TO MONITOR, HAT PUT IN TOILET. PT GIVEN FRESH ICE WATER AND INSTRUCTED TO DRINK FLUIDS MUCH POSSIBLE. EDILIA COELHO IN TO ASSIST PT TO SHOWER.
--- NOTE | 2017-01-25 16:51 | NUR ---
PT OUT OF ROOM WITH PT. WALKING WITH FWW, 1PA, GAIT BELT ON PT.
--- NOTE | 2017-01-25 17:15 | NUR ---
PT UP TO CHAIR, BED ALARM IN PLACE. EATING DINNER. BROUGHT PT TEA AND GRAPEJUICE. CALL LIGHT IN REACH. WILL CONTINUE TO MONITOR.
--- NOTE | 2017-01-25 17:30 | NUR ---
PT UP TO TOILET, DID NOT USE CALL LIGHT, CHAIR ALARM WENT OFF. PT WAS STEADY ON FEET. PT HAD LIQUID BM, STOOL IS BROWN IN COLOR. PT ABLE TO VOID 150 ML. PT NOW BACK TO BED. BED ALARM SET, CURTAIN OPEN FOR VIEW FROM NURSES STATION.
--- NOTE | 2017-01-25 18:39 | NUR ---
PHONE CALL TO DR. GEORGE REGARDING PT'S BP OF 91/70 ON MONITOR. REASSESSED W MANUAL BP 90/60. DR. GEORGE SAID TO HOLD METOPROLOL AND REASSESS IN 30 MINUTES AND CALL HIM BACK. WILL MONITOR. FAMILY NOW PRESENT IN PT ROOM.
--- NOTE | 2017-01-25 18:40 | NUR ---
PT SHOWED IMPROVEMENT IN STRENGTH THIS SHIFT, WALKED LAP AROUND MED SURG FLOOR WITH PT WITH FWW AND 1PA. PT CONTINUES TO GET OUT OF BED ON HIS OWN WITHOUT CALLING, BED/CHAIR ALARM IN PLACE. PT SEGURA REMOVED AND PT VOIDING WELL. PT HAD LIQUID BM THIS AFTERNOON, BROWN COLOR. PT'S BP HAS BEEN IN THE 90S/60S AT END OF SHIFT, ENCOURAGING PT TO STAY HYDRATED. FAMILY IN TO VISIT.
--- NOTE | 2017-01-25 18:52 | NUR ---
TOOK A SHOWER TODAY AROUND 1600. WASHED HAIR AND WANTED TO GO BACK TO BED.
--- NOTE | 2017-01-25 19:07 | NUR ---
DR. GEORGE CALLED, REPEAT BP 96/58. ORDER TO HOLD METOPROLOL, DR. GEORGE TO ADJUST DOSE AND PUT IN NEW ORDER.
--- NOTE | 2017-01-25 19:10 | NUR ---
Report given by day shift RN. PATIENT SEEMS MORE ORIENTED THIS EVENING. HE IS ON REGULAR FOOD HE HAS HAD A SHOWR AND IS IN [facility] SPIRTS.
--- NOTE | 2017-01-25 19:57 | NUR ---
RECIEVED REPORT FROM DAY SHIFT NURSE. PT RESTING IN BED. STATES HE FEELS "PERFECT." PT DENIES NEEDS. CALL BOSE IN REACH.
--- NOTE | 2017-01-25 20:00 | NUR ---
RESTING IN BED QUIETLY. EYES CLOSED AND RESPIRATION EVEN AND UNLABORED.
--- NOTE | 2017-01-25 20:15 | NUR ---
PATIENTS'S LUNGS ARE CLEAR IN THE APEXES AND FINE CRACKLES IN THE BASES WELL DEMINISHED THROUGHOUT. RIGHT FORARM IV IS PATENT, BUT SALINE LOCK. HE HAS NOT HAD A GOOD A NIGHT TO NIGHT. AWAKE AND CONFUSED MUCH MORE THAN LAST NIGHT 2 PERSON ASISST TI THE BATHROOM WITH WALKER. PATIENT IS NO EATING SOLID FOOD AND IS HAPPY FOR THE. HE WANTS TO GO HOME. HE HAS NO SEGURA AT THIS TIME.
--- NOTE | 2017-01-25 22:00 | NUR ---
PATIENT RESTING IN BED QUIETLY. HE DOES GET UP AT TIMES TO LOOK OUT THE DOOR AND SEE WHAT IS GOING ON AND IS DIRECTED BACK TO BED.
--- NOTE | 2017-01-26 00:01 | NUR ---
PATIENT UP WALKING AROUND IN ROOM AND HE WANTED TO SET IN THE RCLINER, HE ATE A COUPLE OF CUPS OF CHOCOLATE PUDDING AND THEN HAD TO GET TO THE BATHROOM TO PEE. WAS UNABLE TO URINATE AND WAS ESCORTED BACK TO BED WITH WALKER AND 1 PERSON ASSIST.
--- NOTE | 2017-01-26 00:14 | NUR ---
PT UP TO CHAIR FROM BED. PEG ALARM INITIATED. SNACK SERVED. CALL BOSE IN REACH.
--- NOTE | 2017-01-26 01:45 | NUR ---
PT UP TO BATHROOM. VOIDED. BACK TO BED. BLADDER SCANNED TO FIND 69CC IN BLADDER. ENCOURAGED PT TO DRINK FLUIDS. PT DENIES FURTHER NEEDS. BED ALARM ON. CALL BOSE IN REACH.
--- NOTE | 2017-01-26 02:45 | NUR ---
Patient resting quietly, eyes closed, breaths even and unlabored.
--- NOTE | 2017-01-26 04:26 | NUR ---
pATIENT RESTING QUITLIY ON HIS LEFT SIDE. RESPIRATIONS EQUAL EVEN AND UNLABORED.
--- NOTE | 2017-01-26 04:54 | NUR ---
PT HAS NOT HAD GOOD OF NIGHT TONIGHT. SLEPT ON AND OF SEEMS A LITTLE MORE CONFUSED AND IS CONSTANTLYTRYING TO GET UP AND WALK AROUNG EVEN WITH THE BED ALARM ON. CURRENTLY HE IS DRINKING A CUP OF COFFEE AND WATCHING TV. PATIENT HAS BEEN VOID REGULARLY IN THE TOILET OR AT LEAST WELL HE CAN HIT IT. HAS GOOD BOWEL TONES, BUT NO BM'S THIS SHIFT. CLEARER IN BOTH UPPER AIR FEILDS, WITH SOME FINE CRACKLES IN THE BILATERAL BENNETT BASES. LEFT FOREARM IV SL AND INTACT AND FLUSHES WELL.
--- NOTE | 2017-01-26 05:37 | NUR ---
Patient sitting up in the chair eating a snack and watching TV.
--- NOTE | 2017-01-26 07:10 | NUR ---
BEDSIDE REPORT RECEIVED FROM SHAHANA SONG. PT IS UP IN CHAIR. DURING REPORT PT GOT UP WITHOUT USING CALL LIGHT OR WALKER, EDILIA EDMOND IN ROOM TO ASSIST PT. PT NOW BACK TO CHAIR, CHAIR ALARM IN PLACE.
--- NOTE | 2017-01-26 07:52 | NUR ---
PT UP TO CHAIR. BROUGHT PT GRAPE JUICE, ASSITED PT TO GET DRESSED. PT HAS CHAIR ALARM IN PLACE. INFORMED PT THAT BREAKFAST WILL BE HERE SOON. CALL LIGHT IN REACH.
--- NOTE | 2017-01-26 09:56 | NUR ---
IN PT ROOM FOR MEDICATION ADMINISTRATION, PT AWAKES CONFUSED, STATING "I DON'T REMEMBER ANYTHING." PT ORIENTED TO PERSON, PLACE, NOT TO EXACT DATE. ASSISTED PT TO RESTROOM, PT PEED, AMT UNMEASURED, URINE YELLOW, DILUTE. PT BRUSHED TEETH AT SINK, WASHED HAND. PT NOW BACK TO CHAIR, CHAIR ALARM IN PLACE. PT ENCOURAGED TO DRINK WATER. CALL LIGHT IN REACH. WILL CONTINUE TO MONITOR.
--- NOTE | 2017-01-26 10:52 | NUR ---
PT OUT OF ROOM, WORKING WITH PHYSICAL THERAPY.
--- NOTE | 2017-01-26 11:34 | NUR ---
PT ASSESSMENT COMPLETE. PT STATING "I FEEL SO MUCH BETTER". WORKED WITH PT, PT STATED "HAD TO TELL BELLA TO GO FASTER". PT UP IN CHAIR, FINE CRACKLES NOTED IN LEFT LOWER LOBE, ENCOURAGED PT TO DEEP BREATHE, COUGH. PT ALERT, ORIENTED X 2, NOT TO EXACT DATE. PT CARRYING CONVERSATION WELL, MORE ENERGY TODAY. CALL LIGHT IN REACH. BROUGHT PT MORE ICE WATER, WILL CONTINUE TO MONITOR.
--- NOTE | 2017-01-26 11:45 | NUR ---
PT USED CALL LIGHT APPROPRIATELY, REQUESTED RAZOR. GIVEN MECHANICAL RAZOR FROM PT BELONGING BAG IN CLOSET. PT HAS NO ADDITIONAL REQUESTS. PT'S FAMILY NOW PRESENT IN ROOM. CALL LIGHT IN REACH.
--- NOTE | 2017-01-26 12:06 | NUR ---
BROUGHT PT AND FAMILY COFFEE. PT HAD NOT ORDERED LUNCH, ASSISTED PT TO ORDER LUNCH. PT HAS CALL LIGHT IN REACH, NO ADDITIONAL REQUESTS AT THIS TIME.
--- NOTE | 2017-01-26 12:20 | NUR ---
DR. GEORGE PRESENT IN PT ROOM, FAMILY IN ROOM. DR. GEORGE DISCUSSED W PT AND FAMILY PLAN FOR PT TO STAY A COUPLE MORE DAYS, WORK W PHYSICAL THERAPY. PT MAKING GOOD PROGRESS. DISCUSSED FLU SHOT WITH FAMILY IN ROOM, FAMILY AND PT STATING THAT PT HAS HAD REACTION TO FLU SHOT, HAS NOT RECEIVED ONE IN ABOUT TEN YEARS, DO NOT RECALL WHAT REACTION WAS. PT HAS CALL LIGHT IN REACH.
--- NOTE | 2017-01-26 14:16 | NUR ---
PATIENT IN BED SLEEPING.
--- NOTE | 2017-01-26 14:51 | NUR ---
ASSISTED PT FROM BED TO RESTROOM, PT URINATED. PT NOW BACK IN CHAIR, BROUGHT PT ENSURE DRINK, AND PUDDING FOR SNACK. PT HAS WATER, NO ADDITIONAL REQUESTS AT THIS TIME. GAVE PT MENU AND INSTRUCTIONS FOR ORDERING DINNER. PT HAS CALL LIGHT AND PHONE NEXT TO HIM. CHAIR ALARM SET.
--- NOTE | 2017-01-26 18:39 | NUR ---
PT WORKED WITH PHYSICAL THERAPY THIS MORNING, TOLERATED WELL. PT HAS USED CALL LIGHT APPROPRIATELY A FEW TIMES, CONTINUED TO HAVE CHAIR ALARM IN PLACE FOR IMPULSIVE TRIPS BY PT TO RESTROOM. PT HAD ADEQUATE URINE OUTPUT. FAMILY AND PT'S DOG IN TO VISIT PT TODAY. PT ALERT, ORIENTED THIS SHIFT, NOT ORIENTED TO DATE. PT CONTINUES TO HAVE SOME BOUTS OF CONFUSION UPON AWAKENING FROM SLEEP.
--- NOTE | 2017-01-26 19:30 | NUR ---
RECIEVED REPORT FROM DAY SHIFT NURSE. PT RESTING UP IN CHAIR. DENIES NEEDS. CALL BOSE IN REACH.
--- NOTE | 2017-01-26 20:00 | NUR ---
PATIENT SITTING IN HIS CHAIR WATCHING TV IN NO DISTRESS.
--- NOTE | 2017-01-26 22:00 | NUR ---
PATIENT A BIT RESTLESS LYING IN BED WATCHING TV.
--- NOTE | 2017-01-26 22:26 | NUR ---
ALARM SOUNDING. PT THREW COVERS OFF, WASNT TRYING TO GET UP. BUT COMPLAINS OF NOT BEING ABLE T SLEEP. THINKS HE IS AT HIS HOME. REORIENTATED TO SURROUNDINGS. BED ALARM ON, CALL LIGHT WITHIN REACH. REMINDED TO NOT GET UP WITHOUT HELP.
--- NOTE | 2017-01-27 00:01 | NUR ---
PATIENT RESTING QUITLEY ON THE COUCH ON HIS LEFT SIDE RESPIRATION EVEN AND REGULAR.
--- NOTE | 2017-01-27 02:00 | NUR ---
pATIENT HAS BEE REST LESS SO WE TOOK A WALK AROUND THE NURSES STATION AND THEN A WHEELCHAIR RIDE AROUND THE HOSPITAL. HE IS NOW BACK IN BED RESTING QUIETLY EYES CLOSED AND BREATHING IS EVEN AND REGULAR.
--- NOTE | 2017-01-27 04:00 | NUR ---
PATIENT IS SITTING UP QUIETLY IN HIS RECLINER DRINKING TEA.
--- NOTE | 2017-01-27 05:46 | NUR ---
PATIENT HAS SLEPT MINIMALLY THROUGH THE NIGHT EVEN WITH THE MELATONIN. HE IS USE THE RESTROOM AMY EXCLUSIVELY TO URINATE AND APPEARS FAIRLY STABLE EVEN THOUGH WE ARE STILL DOING A STANDBY ASISST.SL IN RT WRIST, FLUSHES GREAT. PATIENT SAYS HE JUST DOES NOT FEEL SLEEPY. WE WENT FOR A WALK WITH HIS WALKER AROUND THE NURSES STATION AND THEN A WHEELCHAIR FOR A TOUR AROUND THE HOSPITAL WHICH HE INJOYED VERY MUCH. UPON RETURNING HE HAS SAT IN HIS RECLINER DRINKING TEA.
--- NOTE | 2017-01-27 07:46 | NUR ---
pt up in hcair, chair alarm on, call light at bedside, n other requests,
--- NOTE | 2017-01-27 07:58 | NUR ---
PT AWAKE IN CHAIR. HELPED PT TO THE RESTROOM. TOOK PT FRESH ICE WATER. COMPLETE LINEN CHANGE. PICKED UP ROOM.
--- NOTE | 2017-01-27 12:37 | NUR ---
Pt in chair, talking with visitors, no c/o pain, no requests. Up to brp with one assist and FWW
--- NOTE | 2017-01-27 12:57 | NUR ---
Pt up to brp, voided, back to bed. one assist and fww
--- NOTE | 2017-01-27 14:31 | NUR ---
UP TO BRP, BACK TO BED, TOLERATED WELL. C/O BACK PAIN, MEDICATED WITH TYLENOL 500MG PO. BED ALARM ON
--- NOTE | 2017-01-27 16:34 | NUR ---
Pt up from bed to chair, tlerated well
--- NOTE | 2017-01-27 17:04 | NUR ---
Pt currently up in chair eating. was medicated x1 with Tylenol per c/o back pain with fair relief. SL intact. flushes easily. Has been up to brp with one sb assist and FWW, bed and chair alarm on due to high fall risk. Confused at times but easily redirectable. Has eaten 100% of meals. No emesis. Walked with PT, tolerated well. Has received visitors Continues on swing bed status.
--- NOTE | 2017-01-27 18:31 | NUR ---
Pt up to brp, bed alarm on, one sby assist and FWW, voided, pt reminded to use call light after using brp, reasoning explained. Pt got self to bed w/o calling RN.High fall rish precautions Teaching reinforced, pt semireceptive. Rails up, bed alarm on. Pt moves self in bed. Has been kep awake all of this shift except for a 1/2 hr nap earlier in the day.
--- NOTE | 2017-01-27 19:23 | NUR ---
RECIEVED REPORT FROM DAY SHIFT NURSE. PT RESTING IN BED. DENIES NEEDS. BED ALARM ON. CALL BOSE IN REACH.
--- NOTE | 2017-01-27 22:47 | NUR ---
PT SLEEPING. BED ALARM ON. CALL BOSE IN REACH.
--- NOTE | 2017-01-27 23:10 | NUR ---
PT UP TO BATHROOM WITH AQUATICS MANAGER. BED ALARM ON.
--- NOTE | 2017-01-28 00:12 | NUR ---
PT UP TO BATHROOM WITH RIVET FLUNKY.
--- NOTE | 2017-01-28 01:05 | NUR ---
PT RESTLESS. STATES HE DOES NOT KNOW WHAT TO DO WITH HIMSELF. ASSISTED PT TO CHAIR. WARM BLANKET APPLIED. CALL BOSE IN REACH, PEG ALARM ON.
--- NOTE | 2017-01-28 01:26 | NUR ---
PT AMBULATED TO BATHROOM WITH ASSIST. VOIDED. BACK TO BED. BED ALARM ON. CALL BOSE IN REACH.
--- NOTE | 2017-01-28 01:55 | NUR ---
PT REQUESTING A SNACK. MILK, JELLO AND KAIT CRACKERS DELIVERED. BED ALARM ON. CALL BOSE IN REACH.
--- NOTE | 2017-01-28 03:01 | NUR ---
PT UP BATHROOM WITH ASSIST. VOIDED. BACK TO BED. BED ALARM ON. CALL BOSE IN REACH.
--- NOTE | 2017-01-28 04:14 | NUR ---
PT UP TO BATHROOM WITH ASSISTANCE. BACK TO BED. BED ALARM ON, CALL BOSE IN REACH.
--- NOTE | 2017-01-28 04:41 | NUR ---
PT SLEPT TIL ABOUT 2300 LAST NIGHT. UP TO BATHROOM SEVERAL TIMES TO VOID. PT BACK TO SLEEP AROUND 0400. VS STABLE, IV STILL PATENT. NO C/O PAIN. MORE STEADY AMBULATING-SBA WITH FWW. BED ALARM ON-PT FORGETS TO RING.
--- NOTE | 2017-01-28 05:53 | NUR ---
PT SET OFF BED ALARM, STATES HE HAS TO USE THE BATHROOM. CURRENTLY SITTING ON EDGE OF BED.
--- NOTE | 2017-01-28 06:46 | NUR ---
ASSISTED PT TO BATHROOM TO VOID. PT INSISTS ON GETTING DRESSED THIS MORNING, I ASKED HIM IF HE WOULD LIKE TO GET WASHED UP FIRST BUT HE GOT UPSET AND REFUSED. ASSISTED PT WITH CHANGING HIS CLOTHES. PT SITTING UPRIGHT IN CHAIR WAITING FOR BREAKFASTS. STATES HE IS "MAD" BUT HE CANNOT TELL ME WHY. CALL BOSE IN REACH. PEG ALARM ON.
--- NOTE | 2017-01-28 07:41 | NUR ---
PT SITTING IN RECLINER WITH CHAIR ALARM ON. PT SET OFF ALARM. WANTED TO GET BACK TO BED. BED SHEETS STRAIGHTENED WHILE PATIENT USED RESTROOM. PT BACK IN RECLINER TO EAT BREAKFAST. SBA WITH FWW. STEADY GAIT. TOOK SCHEDULED MEDICATIONS ORDERED. MIRALAX PROVIDED WITH APPLE JUICE. CHAIR ALARM IN PLACE.
--- NOTE | 2017-01-28 08:04 | NUR ---
HELPED PT TO BATHROOM, HE WAS NOT ABLE TO GO. GOT HIM BACK TO BED, SAID HE WAS TIRED AND WANTED TO REST. TOOK OUT TRAY AND PUT HIS GLASSES IN EYEGLASS CASE ON BEDSIDE TABLE
--- NOTE | 2017-01-28 10:11 | NUR ---
PT RESTLESS TODAY. RN TRYING TO ENCOURAGE PATIENT TO GO FOR A WALK, BUT PATIENT RESISTANT. STATES HE "FEELS SICK" IF HE COULD THROW UP. PT BACK AND FORTH FROM CHAIR TO BED TWICE THIS MORNING. POSITIONING PATIENT FOR COMFORT. UP TO BATHROOM IMPULSIVELY. CHAIR ALARM IN PLACE NOW.
--- NOTE | 2017-01-28 14:01 | NUR ---
PT WAS SITTING UP IN CHAIR. SOON I SAT DOWN, HE BEGAN TO HAVE A DISCUSSION WITH ME. HE BEGAN TO RELATE THAT HE HAS HAD A LOT OF TIME TOO THINK SINCE HE HAS BEEN IN HERE. THE CONCLUSION HE HAS REACHED IS THIS-HE FEELS IT IS TIME TO NOT LIVE AT HOME BY HIMSELF. WE DISCUSSED OPTIONS, AND HE STATED THAT UPON DC, HE WILL GET IT FIGURED OUT. GOD BLESS HIM AND HIS FAMILY. WE PRAYED FOR DIRECTION-AND DEVI THANKED ME HE SHOOK MY HAND
--- NOTE | 2017-01-28 15:12 | NUR ---
PATIENT CALLED FOR WATER. GOT FRESH ICE WATER
--- NOTE | 2017-01-28 17:42 | NUR ---
SWING BED. DEMENTIA. IMPULSIVE. BED/CHAIR ALARM. SBA FWW. ATTEMPTING TO REGULATE SLEEP CYCLE. SALINE LOCKED. TYLENOL PRN. WORKING WITH PT. CARE CONFERENCE 9AM SATURDAY PLANNED.
--- NOTE | 2017-01-28 17:59 | NUR ---
REFUSED SHOWER TODAY. NOW PATIENT IS VISITING ALSO IS SITTING UP IN CHAIR.
--- NOTE | 2017-01-28 19:15 | NUR ---
RECIEVED REPORT FROM DAY SHIFT NURSE. PT RESTING UP IN CHAIR, PEG ALARM ON. FAMILY IN ROOM. CALL BOSE IN REACH.
--- NOTE | 2017-01-28 21:30 | NUR ---
PT HAS BEEN HAVING TROUBLE SLEEPING. EXTRA SHEETS OVER CURTAINS TO MAKE THE ROOM DARKER. SHEET OVER MONITOR IN ROOM. EYE MASK GIVEN TO PT WHICH HE HAS BEEN REFUSING.
--- NOTE | 2017-01-28 21:30 | NUR ---
PT RESTING SEMI FOLWERS IN BED. ASKED IF HE COULD HAVE A SLEEPING PILL. MELATONIN ADMINISTERED. HYDRATION OFFERED. PT DENIES FURTHER NEEDS. BED ALARM IN PLACE.
--- NOTE | 2017-01-28 21:53 | NUR ---
PT SET OFF BED ALARM. UP TO BATHROOM WITH SBA. PT VOIDED, BACK TO BED. BED ALARM ON. CALL BSOE IN REACH.
--- NOTE | 2017-01-28 22:07 | NUR ---
PT SET OFF BED ALARM. STATES HE HAS TO USE THE BATHROOM AGAIN. HE THEN ASKED ME, "DID I JUST GO TO THE BATHROOM?" I TOLD HIM YES ABOUT 10 MINUTES AGO. PT THEN SAT BACK DOWN ON THE EDGE OF THE BED AND DECIDED HE NO LONGER HAD TO VOID. DELIVERED SPRITE PER PT'S REQUEST. PT SITTING AT DANGLE ON THE EDGE OF BED. RE-ORIENETED PT. HE DENIES FURTHER NEEDS.
--- NOTE | 2017-01-28 23:05 | NUR ---
PT SET OFF BED ALARM. AMBULATED TO BATHROOM WITH ASSIST. VOIDED. BACK TO BED. CALL BOSE IN REACH. BED ALARM ON.
--- NOTE | 2017-01-28 23:30 | NUR ---
PT SET OFF BED ALARM. SITTING ON EDGE OF BED AND REQUESTS SOMETHING WARM TO DRINK. AMBULATED MANUEL WITH PT, MADE HIM DECAF TEA. PT SAT AT THE NURSES STATION FOR 15 MINS. PT BACK TO BED. BED ALARM ON, CALL BOSE IN REACH.
--- NOTE | 2017-01-29 00:18 | NUR ---
PT SET OFF BED ALARM. UP TO BATHROOM WITH ASSIST.
--- NOTE | 2017-01-29 00:50 | NUR ---
PT SET OFF BED ALARM. STATES HE DOES NOT KNOW WHAT HE WANTS TO DO. TRANSFERRED HIM OVER TO THE CHAIR. PEG ALARM ON. PT DENIES FURTHER NEEDS. CALL LIGHT IN REACH.
--- NOTE | 2017-01-29 01:13 | NUR ---
PT SET OFF PEG ALARM. RN ASSISTED PT TO BATHROOM. PT VOIDED AND BACK TO BED. BED ALARM ON. CALL BOSE IN REACH.
--- NOTE | 2017-01-29 01:50 | NUR ---
PT SET OFF BED ALARM. RN IN TO ASSIST.
--- NOTE | 2017-01-29 04:56 | NUR ---
PT USED CALL LIGHT FOR ASSISTANCE TO THE BATHROOM. PT BACK TO BED. CALL BOSE IN REACH. BED ALARM ON.
--- NOTE | 2017-01-29 05:10 | NUR ---
PT WAS UP FROM 2200 TO 0200 CONSTANTLY SETTING OFF BED ALARM. VOIDING FREQUENTLY. SAT OUT AT THE NURSES STATION A COUPLE TIMES. CARE CONFERENCE AT 9 ON SATURDAY.
--- NOTE | 2017-01-29 07:36 | NUR ---
PT AWAKE SITTING UP IN BED VISITING WITH FAMILY MEMBER. VSS. NO COMPLAINTS AT THIS TIME. PT REPORTS HUNGRY FOR BREAKFAST. SLICING MACHINE OPERATOR/TENDER MADE SURE BREAKFAST ORDER WAS MADE ALREADY. WHITE BOARD UPDATED. BREAKFAST DELIVERED. PT ASSISTED UP TO CHAIR. CHAIR ALARM IN PLACE. BREAKFAST SET UP FOR PATIENT.
--- NOTE | 2017-01-29 09:58 | NUR ---
PT IS RESTING IN BED WITH EYES CLOSED, RESPERATIONS EVEN. CALL LIGHT IN NEXT TO PT. PT'S VITAS WERE TAKEN BY NURSE EARLIER
--- NOTE | 2017-01-29 12:47 | NUR ---
PT SITTING UP IN CHAIR. ALERT AND MORE ORIENTED TODAY. 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 GOOD DISCUSSION, I JOGGED HIS MEMORY, HE RESPONDED BETTER THAN IN RECENT DAYS. HE SAID HE HOPES TO BE DC'D TOMORROW-HE FEELS GOOD! HAD PRAYER TOGETHER, WILL CONTINUE TO FOLLOW.
--- NOTE | 2017-01-29 13:00 | NUR ---
PT WAS ASKED AGAIN IF HE WOULD LIKE TO SHOWER, HE REFUSED SAYING HE DOES NOT FEEL UP TO A SHOWER.
--- NOTE | 2017-01-29 14:07 | NUR ---
PT IS RESTING IN BED WITH AMANDA LIGHT IN REACH AND BED ALARM ON. PT IS TRYING TO TAKE A NAP AND DID NOT NEED ANYTHING AT THE MOMENT
--- NOTE | 2017-01-29 16:14 | NUR ---
PT WORKED WITH PHYSICAL THERAPY THIS AFTERNOON. NO COMPLAINTS. UP BETWEEN THE CHAIR AND BED MULTIPLE TIMES. CHAIR/BED ALARM IN PLACE. IMPULSIVE WITH AMBULATING. URINATES FREQUENTLY SMALL AMOUNTS.
--- NOTE | 2017-01-29 17:00 | NUR ---
ASKED PT FOR A THIRD TIME ABOUT SHOWERING, PT VERY GRUMPILY SAID NO. NURSE AWARE.
--- NOTE | 2017-01-29 17:19 | NUR ---
NO SIGNIFICANT CHANGES. SBA FWW. IMPULSIVE. BED/CHAIR ALARM. AGITATED AT TIMES. AMBULATED WITH PHYSICAL THERAPY. TYLENOL X1 FOR "NOT FEELING WELL". FAMILY VISITED TODAY. ROOM AIR. DAY 5 OF IV TOMORROW (01/30/17). SALINE LOCKED.
--- NOTE | 2017-01-29 17:44 | NUR ---
SPOKE WITH PATIENTS DAUGHTER SIDDHARTH BY PHONE. INVITED HER AND OTHER FAMILY TO ATTEND [facility] TOMORROW MORNING IN PATIENTS ROOM. EXPLAINED IT WAS A CHANCE FOR FAMILY AND PATIENT TO ASK QUESTIONS AND FOR GOALS TO BE EVALUATED AGAIN. SHE STATED SHE WILL TRY TO BE THERE.
--- NOTE | 2017-01-29 18:09 | NUR ---
PT IS SITTING UP IN CHAIR, WITH CALL LIGHT IN REACH AND TAG AARM ON
--- NOTE | 2017-01-29 19:10 | NUR ---
PATIENT RESTING IN BED. EYES CLOSED. RR16. BED ALARM ON. CALL LIGHT IN REACH. SHIFT REPORT RECIEVED.
--- NOTE | 2017-01-29 19:34 | NUR ---
PT BED ALARM SOUNDING. PT YELLED "SHUT THOSE DAMN LIGHTS OFF" "ITS MY HOUSE". REORIENTATED TO PLACE, NOT SURE HE UNDERSTOOD, BUT REMINDED HIM. OFFERED THE BATHROOM BUT HE DECLINED. TUCKED HIM BACK INTO BED, ORIENTATED TO CALL LIGHT, WHICH IS LAYING ON HIM. BED ALARM ON.
--- NOTE | 2017-01-29 20:15 | NUR ---
PT AWAKE. MEDICAL RECORDS FIELD TECHNICIAN TENDED TO NEEDS, AND OFFERED A "WHITE NOISE MACHINE" TO HELP DECREASE THE OUTSIDE NOISE. HE AGREED.
--- NOTE | 2017-01-29 21:34 | NUR ---
PT USED CALL LIGHT, WANTED TO GET UP. AMBULATED HIM AROUND FLOOR MANUEL, DID HAVE SOB, BUT WANTED BACK TO BED. WHITE NOISE MACHINE IS ON TO A LOW SETTING.
--- NOTE | 2017-01-29 22:18 | NUR ---
EVEING MEDS GIVEN PER ORDERS. VS WNL. PATIENT REQUESTED GETTING UP TO THE RECLINER. DENIES NEED FOR USING THE BATHROOM. CHAIR ALARM ON. PATIENT DENIES ANY FURTHER NEEDS. CALL LIGHT IN HIS LAP. HE AGREES TO USE IT.
--- NOTE | 2017-01-29 23:00 | NUR ---
PATIENT ATTEMPTING TO GET UP OUT OF THE CHAIR. CHAIR ALARM SOUNDED. PATIENT WENT TO THE BATHROOM, SBA W/FWW. PATIENT APPEARS STEADY. ASSISTED PATIENT BACK TO BED. BED ALARM ON. CALL LIGHT IN HAND. DENIES FURTHER NEEDS AT THIS TIME.
--- NOTE | 2017-01-30 00:15 | NUR ---
PATIENT USED CALL LIGHT. WHEN RN ENTERED THE ROOM, PATIENT WAS IN BATHROOM. ASSISTED PATIENT BACK TO BED. PLACED BED ALARM ON. AND PUT CALL LIGHT IN HAND.
--- NOTE | 2017-01-30 02:01 | NUR ---
PATIENT RESTING IN BED. BED ALARM ON. CALL LIGHT IN REACH.
--- NOTE | 2017-01-30 03:37 | NUR ---
PATIENT RESTING IN BED. BED ALARM ON. CALL LIGHT IN REACH. RR 16.
--- NOTE | 2017-01-30 04:15 | NUR ---
PATIENT COMPLAINS OF A BACK ACHE. RUBBED PATIENTS BACK PER REQUEST. PATIENT IS NOW SITTING ON THE EDGED OF THE BED DRINKING TEA. PATIENT DENIES ANY FURTHER NEEDS CALL LIGHT IN REACH.
--- NOTE | 2017-01-30 04:55 | NUR ---
PATIENT RESTED WELL THROUGHOUT THE NIGHT. USED CALL LIGHT MULTIPLE TIMES. BED ALARM ON. SBA W/FWW. TYLENOL X1 FOR BACK PAIN. REGULAR DIET.
--- NOTE | 2017-01-30 05:28 | NUR ---
PATIENT RESTING IN BED. BED ALARM ON. CALL LIGHT IN REACH. RR 16.
--- NOTE | 2017-01-30 06:08 | NUR ---
PT ALARM SOUNDING. ASSISTED PT TO BATHROOM, BACK INTO CHAIR WITH CHAIR ALARM. TURNED TV ON WELL LIGHTS PER PT REQUEST.
--- NOTE | 2017-01-30 06:28 | NUR ---
PATIENT SITTING IN RECLINER WATCHING TV. DENIES ANY NEEDS AT THIS TIME. MORNING MEDS GIVEN. CHAIR ALARM ON. CALL LIGHT IN HAND.
--- NOTE | 2017-01-30 08:30 | NUR ---
PT AWAKE IN CHAIR. CHAIR ALARM IN PLACE. ORIENTED TO SELF, KNOWS HE IS AT A HOSPITAL AND IS "UNWELL." PT DENIES PAIN OR NAUSEA BUT STATES "I'M FEELING OFF TODAY." UNABLE TO EXPLAIN IN DETAIL WHAT THAT ENTAILS. DENIES CHEST PAIN, LIGHT HEADEDNESS OR DIZZINESS. HR IRREGULAR RUNNING 70-85. IV IN RIGHT FA FLUSHES WELL, DRESSING INTACT. PT ATE ALL OF BREAKFAST INDEPENDENTLY.
--- NOTE | 2017-01-30 10:45 | NUR ---
PT ASSISTED TO RESTROOM, SBA WITH WALKER. AMB BACK TO RECLINER AFTER VOIDING. CHAIR ALARM IN PLACE.
--- NOTE | 2017-01-30 12:45 | NUR ---
PT SITTING UP IN RECLINER, EYES CLOSED, RESP EVEN AND UNLABORED. CHAIR ALARM IN PLACE.
--- NOTE | 2017-01-30 14:30 | NUR ---
FRESH ICE WATER. TOOK TO BATHROOM. NOW IN BED. RESTING. PT HAS CA IGHT IN REACH.
--- NOTE | 2017-01-30 15:33 | NUR ---
IV DC'D PER DR. HANCOCK. DC'D BY WASH OIL PUMP OPERATOR HELPER GER[place] WITH THIS RN'S SUPERVISION. PT MARCOS WELL. SCHEDULED MEDS ADMINISTERED. PT SITTING UP IN RECLINER READING NEWSPAPER, CHAIR ALARM ON.
--- NOTE | 2017-01-30 15:48 | NUR ---
PT ATTEMPTED TO GET OUT OF BED INDEPENDENTLY. ASSISTED PT TO AMB TO RESTROOM TO VOID. AMB WELL WITH WALKER. BACK TO RECLINER. FEET ELEVATED. CHAIR ALARM ON.
--- NOTE | 2017-01-30 17:30 | NUR ---
PT RICARDO HALLWAY WITH VISITORMARCOS. AMB BACK TO ROOM AND SITTING AT EDGE OF BED TO EAT DINNER AFTERWARDS. BED ALARM ON.
--- NOTE | 2017-01-30 20:06 | NUR ---
IN TO SEE PT, PT RESTING IN BED. ASSESSMENT COMPLETE. PM MEDICATIONS GIVEN TO PREVENT DISTRUBING PT DURING SLEEP. PT STATES " I JUST WASNT DARK AND QUIET." PT SLIGHTLY CONFUSED WITH PLACE. WHEN QUESTIONED ABOUT LOCATION, THE PT STATED HE WAS AT "HOME." REORIENTS EASILY. LIGHT OFF, COMPUTER COVERED AND DOOR CLOSED SLIGHTLY. REMINDED PT TO USE CALL LIGHT IF HE NEEDS TO GET UP. BED ALARM IN PLACE.
--- NOTE | 2017-01-30 21:22 | NUR ---
PT HOLLERED OUT, WAS SITTING AT THE EDGE OF THE BED. WANTED TO GO BACK TO BED. ASSISTED TO BED, SIDE RAILS UP X 4, BED ALARM ON, CALL LIGHT WITHIN HIS REACH.
--- NOTE | 2017-01-30 22:09 | NUR ---
IN ROOM, EXITING ALARM NOTED. PT REQUESTING TO GET UP TO THE BATHROOM. PT UP WITH STANDBY ASSIST AND FWW. ASSISTED BACK TO BED. PT TOLERATED WELL. ALL SIDE RAILS UP AND BED ALARM ON. LIGHTS OUT.
--- NOTE | 2017-01-31 01:07 | NUR ---
IN TO CHECK ON PT, PT IN BED RESTING. NO APPARENT DISTRESS NOTED. SIDE RAILS IN PLACE AND BED ALARM ON. CALL LIGHT IN REACH.
--- NOTE | 2017-01-31 02:30 | NUR ---
PT UP, BED ALARM NOTED. PT IN TO USE BATHROOM WITH 1 PER ROME ASSIST AND FWW. ASSISTED BACK TO BED, PT TOLERATED WELL. ALL [address], BED ALARM ON. NO FURTHER NEEDS AT THIS TIME. CALL LIGHT IN REACH.
--- NOTE | 2017-01-31 03:10 | NUR ---
BED ALARM GOING OFF, IN TO CHECK ON PT. PT AWAKE SITTING AT BEDSIDE. PT STATES HE IS HUNGRY, PUDDING GIVEN. PT UP TO BATHROOM TO URINATE. ASSISTED BACK TO BED, TOLERATED WELL. SIDE RAILS IN PLACE, BED ALARM ON. CALL LIGHT IN REACH.
--- NOTE | 2017-01-31 05:12 | NUR ---
PT HAS HAD VERY ACTIVE NIGHT, MINIMAL REST NOTED. PT UP WITH STANDBY ASSIST AND FWW. CARE CONF. COMPLETE 01/30/17 PER DAY SHIFT. PT PLEASANTLY CONFUSED, EASILY REORIENTED. NO IV ACCESS AT THIS TIME. PT ON REGULAR DIET. BM NOTED 01/31/17. ALL SIDERAILS IN PLACE AND BED ALARM ON.
--- NOTE | 2017-01-31 05:58 | NUR ---
PT UP TO BEDSIDE, REQUESTED COFFEE. COFFEE GIVEN. PT SITTING AT BEDSIDE. CALL LIGHT IN REACH.
--- NOTE | 2017-01-31 08:05 | NUR ---
UP TO SIDE OF BED EATING BREAKFAST, REPORT WAS RECEIVED FROM TAX COMPLIANCE REPRESENTATIVE RN.
--- NOTE | 2017-01-31 09:46 | NUR ---
UP IN CHAIR, FINISHED WITH BREAKFAST, STATES NOT FEELING VERY WELL. NAUSEATED. VITAL SIGNS TAKEN AND STABLE.
--- NOTE | 2017-01-31 11:16 | NUR ---
SWING BED PATIENT. MED REC REFLECTS CHANGES FROM INPATIENT STAY.
--- NOTE | 2017-01-31 16:01 | NUR ---
ARMEN GAVE PATIENT A SHOWER TODAY. RIGHT NOW IS SITTING UP AT THE NURSES STATION. NOW IS WALKING WITH JAILENE.
--- NOTE | 2017-01-31 16:30 | NUR ---
has been sitting in chair outside of nurses station. went on a walk with citrus fruit packer, now back to room for scheduled medications.
--- NOTE | 2017-01-31 17:37 | NUR ---
Took Tj out for a walk and we went down to [facility] to visit Jill, He sat down in a chair for a minute while there for a break, and also danced for them, he called it the Didier celestinle. He was making jokes the whole walk. before our walk I had him sitting out at the nurses station with me and was giving him little tasks to do to try and keep him awake, also let him pick out some music and he wanted to listen to western. He had an enjoyable night and kept forgetting what time of day it was.
--- NOTE | 2017-01-31 18:43 | NUR ---
UP SITTING NEAR NURSES STATION.
--- NOTE | 2017-01-31 19:10 | NUR ---
RECVD REPORT FROM ARMEN RN. PT SITTING IN CHAIR AT NURSES STATION TALKING WITH STAFF. RN REPORT THAT PT STATES HE IS "NOT FEELING WELL TODAY." NAUSEA X1 NOTED. PT CONTINUES TO BE PLEASENTLY CONFUSED BUT IMPULSIVE. 1 PERSON STANDBY ASSIST WITH WALKED TO THE BATHROOM, PT TOLERATES WELL. PT ASSISTED TO BED BY ARMEN HARKINS. NO FURTHER NEEDS AT THIS TIME. ALL SIDE RAILS UP, BED ALARM IN PLACE. CALL LIGHT IN REACH.
--- NOTE | 2017-01-31 20:30 | NUR ---
IN TO CHECK ON PT, PT SITTING UP AT THE EDGE OF THE BED. PT C/O BEING COLD. ASSISTED BACK TO BED, WARM BLANKET GIVEN. SIDE RAILS IN PLACE, BED ALRM IN PLACE. CALL LIGHT IN REACH.
--- NOTE | 2017-01-31 21:45 | NUR ---
IN TO CHECK ON PT, PT OOB WITHOUT ASSISTANCE. BED ALARM NOTED. PT ASSISTED TO SITTING POSITION AT THE EDGE OF BED. PM MEDICATIONS GIVEN. PT ASSISTED BACK TO BED. BED ALRM IN PLACE. PT RESTING, CALL LIGHT IN REACH.
--- NOTE | 2017-01-31 23:45 | NUR ---
IN TO CHECK ON PT, PT UP TO SIDE OF BED. REORIENTED TO TIME AND PLACE. PT REORIENTS EASILY. PT REQUEST TO SIT UP AT BEDSIDE. PT SITTING UP. PT ASSISTED BACK TO BED. BED ALARM IN PLACE. CALL LIGHT IN REACH.
--- NOTE | 2017-02-01 01:45 | NUR ---
IN TO CHECK ON PT, PT SITTING UP AT BEDSIDE. PT REQUEST SOMETHING HOT TO DRINK. DECAF TEA GIVEN. PT SITTING UP AT BEDSIDE. PT ASSISTED BACK TO BED. SIDE RAILS UP, BED ALARM ON. NO FURTHER NEEDS AT THIS TIME. CALL LIGHT IN REACH.
--- NOTE | 2017-02-01 05:01 | NUR ---
PT HAS RESTED WELL THROUGH OUT THE SHIFT. BED ALARM AND SIDE RAILS IN PLACE. SBA WITH FWW. REGULAR DIET. PLEASANTLY CONFUSED, REORIENTS WELL. NO IV ACCESS AT THIS TIME. PT IS ON RA.
--- NOTE | 2017-02-01 07:00 | NUR ---
BEDSIDE HANDOFF REPORT RECEIVED FROM UNIVERSITY DEAN RN. PT SLEEPING, LEFT UNDITURBED.
--- NOTE | 2017-02-01 08:30 | NUR ---
PT SITTING ON EDGE OF BED. PT DENIES PAIN. PT ON ROOM AIR, LUNG SOUNDS CLEAR. PT DENIES NAUSEA, TOLERATING REGULAR DIET. PT WITH MULTIPLE STOOLS YESTERDAY, MIRALAX HELD. PT WITH MODERATE EDEMA TO BLE, RECEIVED LASIX. PT CONTINUES TO BE CONFUSED, COOPERATIVE WITH CARE. PT DENIES OTHER NEEDS AT THIS TIME.
--- NOTE | 2017-02-01 10:00 | NUR ---
VISITORS AND FAMILY AT BEDSIDE.
--- NOTE | 2017-02-01 14:00 | NUR ---
PT ASSISTED TO RESTROOM AND BACK TO BED. PT VOIDED. PT DENIES OTHER NEEDS AT THIS TIME.
--- NOTE | 2017-02-01 15:16 | NUR ---
PT RESTING IN BED. PT REQUESTING A SNACK, PROVIDED WITH PUDDING. PT DENIES OTHER NEEDS AT THIS TIME.
--- NOTE | 2017-02-01 17:00 | NUR ---
PT ASSSITED TO BATHROOM, VOIDED. PT ASSISTED TO CHAIR TO EAT DINNER. PT DENIES NEEDS AT THIS TIME.
--- NOTE | 2017-02-01 17:51 | NUR ---
PT HAD UNEVENTFUL DAY. PT CONTINUES TO BE CONFUSED, REORIENTS EASILY. PT TOLERATING REGULAR DIET. PT CLEARED FOR DISHCARGE BY PHYSICAL THERAPY. PT WITH 2+ EDEMA TO BLE. PT VOIDING QS, HAD BM TODAY.
--- NOTE | 2017-02-01 19:10 | NUR ---
REPORT RECVD FROM JAMISON HARKINS. PT AWAKE IN BED. RN STATES THAT PT HAS BEEN VERY ACTIVE TODAY AND BEEN AGITATED. PT WAS CLEARD BY PT TODAY, IS ON A REGULAR DIET AND IS ON RA. NO FURTHER NEEDS AT THIS TIME. CALL LIGHT IN REACH.
--- NOTE | 2017-02-01 23:00 | NUR ---
RN IN IN MANUEL HEADING BACK TO NURSES STATION WHEN IT WAS NOTED THAT PT WAS OOB UNASSISTED. PT AMBULATED TO RM 111 DEMANDING TO "KNOW WHAT THE HELL IS GOING ON IN HERE." RN PROVIDING CARE IN RM 111 ATTEMPTS TO REORIENT THE PT TO PLACE PT RESPONDS, " I OWN THIS DAMN PLACE AND I WANT TO KNOW WHAT IS GOING ON." RN TO ROOM TO REORIENT PT, PT OUT OF ROOM. AMBULATED BACK TO PT ROOM. PT IS UPSET WITH THE NOISE. EXPLAINED TO PT THAT HE IS IN THE HOSPITAL AND WE ARE CARING FOR OTHER PT'S. PT STATES "ALL NIGHT FOR ELLY SAKES." EXPLAINED AGAIN THAT THE RN'S ARE HERE ALL NIGHT. PT BACK TO BED, CALL LIGHT IN REACH.
--- NOTE | 2017-02-02 00:45 | NUR ---
IN TO CHECK ON PT, PT SITTING IN CHAIR. PT APPEARS TO BE SLEEPING. NO APPARENT DISTRESS NOTED. CALL LIGHT IN REACH.
--- NOTE | 2017-02-02 01:10 | NUR ---
PT AWAKE STANDING IN DOOR WAY LOOKING OUT. RN IN ROOM TO CHECK ON PT. PT ASKS "WHAT IS THIS ON MY DOOR." PT IS AGITATED AT THIS TIME. RN EXPLAINS THAT PT IS IN THE HOSPITAL AND THERE IS A SIGN ON HIS EDNA FOR THE STAFF. PT ANGEREDLY RESPONED " I DON'T NEED ANYTHING ON MY DOOR, GOOD NIGHT." RN VISUALIZES PT AMBULATE BACK TO BED. SIDE RAILS IN PLACE. CALL LIGHT IN REACH.
--- NOTE | 2017-02-02 02:30 | NUR ---
PT OUT TO RN STATION, VISITING WITH STAFF. PT PLEASENT AT THIS TIME. ASSISTED BACK TO BED. SIDE RAILS IN PLACE, CALL LIGHT IN REACH.
--- NOTE | 2017-02-02 04:54 | NUR ---
IN TO CHECK ON PT, PT IN BED. APPEARS TO BE SLEEPING. NO APPARENT DISTRESS NOTED. SIDE RAILS UP AND CALL LIGHT IN PLACE.
--- NOTE | 2017-02-02 05:38 | NUR ---
IN TO CHECK ON PT, PT SITTING UP AT BEDSIDE. PT REQUEST HELP WITH LINEN, STATES HE IS COLD. WARM BLANKET GIVEN. PT IN BED, SIDE RAILS IN PLACE. NO FURTHER NEEDS AT THIS TIME. CALL LIGHT IN REACH.
--- NOTE | 2017-02-02 05:51 | NUR ---
PT HAS RESTED MORE THROUGH OUT SHIFT. PT IS CONFUSED AT TIME WITH IMPULSIVE BEHAVIORS. REORIENTS EASILY. TOLERATING REGULAR DIET. PT COPNTINUES TO HAVE 1+ LE EDEMA. 1 PERSON STANDBY ASSIST UP TO BATHROOM AND IN MANUEL.
--- NOTE | 2017-02-02 07:00 | NUR ---
BEDSIDE HANDOFF REPORT RECEIVED FROM SPOOL SALVAGER RN. PT SLEEPING, LEFT UNDISTURBED.
--- NOTE | 2017-02-02 08:33 | NUR ---
PT IS SITTING UP IN CHAIR EATING HIS BREAKFAST. PT HAS SAID HE MAY SHOWER AFTER BREAKFAST BUT ISN'T 100% SURE YET, WILL ASK AGAIN. PT DID NOT NEED ANYTHING ELSE AT THE MOMENT
--- NOTE | 2017-02-02 08:45 | NUR ---
PT SITTING IN CHAIR, EATING BREAKFAST. PT DENIES PAIN. LUNG SOUNDS CLEAR, ON ROOM AIR, ENCOURAGED I/S. PT BOWEL TONES ACTIVE, TOLERATING REGULAR DIET. PT WITH 2-3+ EDEMA TO BLE, LEGS ELEVATED. DISCUSSED PLAN OF CARE FOR TODAY.
--- NOTE | 2017-02-02 09:48 | NUR ---
PT HAS SHOWERED, HAIR WASHED, AND LINENS CHANGED. PT IS NOW SITTING UP IN CHAIR WITH CALL LIGHT IN REACH AND TAG ALARM ON. PT ASKED FOR A CUP OF COFFEE
--- NOTE | 2017-02-02 10:15 | NUR ---
PT REQUESTING TO GO BACK TO BED, ASSISTED, PT RESTING COMFORTABLEY, DENIES OTHER NEEDS. BED ALARM ON.
--- NOTE | 2017-02-02 10:37 | NUR ---
PT IS RESTING IN BED SAFELY WITH EYES CLOSED, RESPERATIONS EVEN. CALL LIGHT IN REACH AND BED ALARM ON . PT'S VITAS WERE TAKEN BY NURSE EARLIER THIS MORNING
--- NOTE | 2017-02-02 12:35 | NUR ---
PT SITTING IN CHAIR. EATING LUNCH. PT DENIES NEEDS AT THIS TIME.
--- NOTE | 2017-02-02 14:19 | NUR ---
PT IS RESTING IN BED SAFELY WITH EYES CLOSED, RESPERATIONS EVEN. CALL LIGHT IN REACH AND BED ALARM ON
--- NOTE | 2017-02-02 16:17 | NUR ---
PT RESTLESS, REQUESTING TO WALK. PT ASSITED TO WALK IN MANUEL WITH NURSE AIDE.
--- NOTE | 2017-02-02 16:20 | NUR ---
PT AMBULATED IN HALLWAY WITH WALKER, WALKED ONE FULL LAP. PT IS NOW LYING IN BED WITH CALL LIGHT IN REACH AND ALARM ON
--- NOTE | 2017-02-02 16:45 | NUR ---
NOTIFIED OF BLE EDEMA. NO NEW ORDERS AT THIS TIME.
--- NOTE | 2017-02-02 17:48 | NUR ---
PT FINISHED HIS DINNER AND IS NOW RESTING IN BED SAFELY WITH CALL LIGHT IN REACH AND BED ALARM ON.
--- NOTE | 2017-02-02 17:50 | NUR ---
PT HAD UNEVENTFUL DAY. PT WALKED IN MANUEL WITH ASSISTANCE. PT WITH 2+ EDEMA TO BLE. PT TOLERATING REGULAR DIAT. PT VOIDING QS, HAD BM TODAY.
--- NOTE | 2017-02-02 21:00 | NUR ---
PATIENT RESTING QUIETLY IN HIS RECLINER. IN A PLEASANT MOOD AT THIS TIME.
--- NOTE | 2017-02-02 22:00 | NUR ---
PATIENT UP PERIODICALLY IN HIS ROOM, SET OF THE BED OR CHAIR ALARM EVERY 30 TO 40 MINUTES AT LEAST. PLEASANTLY CONFUSED BUT COOPERATIVE.
--- NOTE | 2017-02-02 23:06 | NUR ---
PATIENT WAS UNABLE TO SLEEP AND ASK FOR SOMETHINF TO HELP. 1 MG PO mELATONIN WAS GIVEN. PATIENT RESTING QUIETLY AT THIS TIME.
--- NOTE | 2017-02-03 00:02 | NUR ---
PATIENT STILL COMING OUT OF ROOM AND TIMES AND WILL SLEEP IN SHORT SPELLS CONFUSED BUT STABLE.
--- NOTE | 2017-02-03 02:00 | NUR ---
PATIENT RESTING IN ROOM QUIETLY WITH EYES CLOSED AND REGULAR AND EVEN REPIRATIONS FOR THE TIME BEING.
--- NOTE | 2017-02-03 04:49 | NUR ---
PATIENT HAS SLEPT PERIODICALLY THROUGHT THE NIGHT. DID HAVE SOME LIGHT BACK PAIN AT THE BEGINING OF THE SHIFT, WHICH WAS RELIEVED BY TYLENOL PATIENT IS RESTING QUIETLY IN BED WITH EYES CLOSED AND HE HAD JUST GOT SOME PUDDING FROM THE NURSES STATION.
--- NOTE | 2017-02-03 07:16 | NUR ---
HANDOFF REPORT RCEIVED FROM WATER QUALITY MANAGER RN. PT SLEEPING LEFT UNDISTURBED.
--- NOTE | 2017-02-03 08:15 | NUR ---
PT SITTING IN CHAIR, EATING BREAKFAST. PT DENIES PAIN. LUNG SOUNDS CLEAR, ON ROOM AIR. PT CONTINUES TO BE CONFUSED, AT BASELINE. PT TOLERATING REGULAR DIET. PT CONTINUES TO HAVE EDEMA TO BLE, 3+. PT ENCOURAGED TO SHOWER, DSICUSSED PLAN OF CARE. PT DENIES OTHER NEEDS AT THIS TIME. FAMILY AT BEDSIDE, CHAIR ALARM ON.
--- NOTE | 2017-02-03 09:17 | NUR ---
PATIENT IS IN BED NOW, HE WAS UP IN HIS CHAIR, HE IS CURRENTLY SAYING HE IS UNCOMFORTABE I FARNAZ REPORT THAT TO THE NURSE. I DID HIS MORNING PAL[place] SIGNS, HE IS A SWING BED. HE HAD A QUICK WASH UP THIS MORNING HE SHOWERED [id number].
--- NOTE | 2017-02-03 09:20 | NUR ---
PT RESTLESS, STATES HE IS UNCOMFORTABLE. PT ASSISTED TO WALK IN MANUEL. PT BACK TO CHAIR, CHAIR ALARM ON. PT DENIES OTHER NEEDS AT THIS TIME.
--- NOTE | 2017-02-03 10:45 | NUR ---
PT RESTLESS,LAYING IN BED, REPOSITIONED. BED ALARM ON. PT DENIES OTHER NEEDS AT THIS TIME.
--- NOTE | 2017-02-03 14:10 | NUR ---
patient is in his chair, he had his lunch and is taking a small nap. he needed n assitance at this time.
--- NOTE | 2017-02-03 15:09 | NUR ---
PT SITTING IN CHAIR.
--- NOTE | 2017-02-03 15:24 | NUR ---
PT FOUND WALKING IN ROOM COLLECTING BELONGINGS. PT STATES HE IS GOING HOME, REORIENTED, TOLD HE IS DISCHARGING TOMORROW. PT ASSISTED BACK TO CHAIR. CHAIR ALARM WAS OFF, CORD WAS MISSING, ONE CORD FOUND IN BED AND ONE CORD FOUND IN BATHROOM. CHAIR ALARM PLACED ON PT AND TURNED ON.
--- NOTE | 2017-02-03 16:45 | NUR ---
PT SITTING IN CHAIR. PT REMOVED CHAIR ALARM AND HAD TURNED OFF ALARM. ALARM RESET. PT DENIES NEEDS AT THIS TIME.
--- NOTE | 2017-02-03 18:00 | NUR ---
PT HAD UNEVENTFUL DAY. PT CONTINUES TO BE CONFUSED, REORIENTS EASILY. PT HAS BEEN TURNING OFF CHAIR ALARM, ATTACH TO PANTS. ON ROOM AIR, LUNG SOUNDS CLEAR. PT CONTINUES TO HAVE EDEMA TO BLE. SBA TO AMBULATE. NO IV ACCESS. VOIDING QS.
--- NOTE | 2017-02-03 19:05 | NUR ---
RECVD REPORT FROM JAMISON HARKINS. PT AWAKE SITTING AT EDGE OF BED. JAMISON HARKINS STATES THAT PT HAS BEEN VERY RESTLESS DURING SHIFT. PT ABLE TO REMOVE CHAIR ALARM AND CHAIR ALARM. PT IS A 1 PERSON ROME ASSIST WITH FWW. REGULAR DIET. NO FURTHER NEEDS AT THIS TIME. CALL LIGHT IN REACH.
--- NOTE | 2017-02-03 22:23 | NUR ---
PT CALLING OUT, IN TO ROOM. PT STATES " I AM JUST SO RESTLESS AND I CAN'T SETTLE DOWN AND SLEEP." PT SITTING AT BEDSIDE. ASSESSMENT COMPLETE. VITALS AND PM MEDICATION GIVEN. PT GIVEN WARM MILK PER REQUEST. NO FURTHER NEEDS AT THIS TIME. PT IN BED, BED ALARM IN PLACE. CALL LIGHT IN REACH.
--- NOTE | 2017-02-04 00:26 | NUR ---
IN TO CHECK ON PT, PT APPEARS TO BE SLEEPING. PT IN BED IN SUPINE POSITION. RR EVEN AND UNLABORED. NO APPARENT DISTRESS NOTED. SIDE RAILS AND BED ALARM IN PLACE. CALL LIGHT IN REACH.
--- NOTE | 2017-02-04 01:04 | NUR ---
PT AWAKE, EXITING ALARM SOUNDING. PT STATES "I AM AWAKE BUT I DON'T KNOW WHY." PT AMBULATED OUT TO NURSES STATION WITH STANBY ASSIST, TOLERATED WELL. PT ASSISTED BACK TO BED. NO FURTHER NEEDS AT THIS TIME. SIDERAILS AND BED ALARM IN PLACE. CALL LIGHT IN REACH.
--- NOTE | 2017-02-04 03:07 | NUR ---
PT AWAKE, SITTING AT BEDSIDE. RN IN TO TALK TO PT. PT STATES "GOOD MORNING." PT NOTIFIED THAT IT IS 0300. PT STATES "REALLY." PT ASSISTED BACK TO BED. SIDE RAILS AND BED ALARM IN PLACE. CALL LIGHT IN REACH.
--- NOTE | 2017-02-04 06:12 | NUR ---
PT HAS HAD UNEVENTFUL EVENING, RESTED WELL. CONTINUES TO BE CONFUSION TO TIME AND PLACE. REORIENTS WELL. BED ALARM AND CHAIR ALARM IN PLACE. PT HAS BEEN ABLE TO TURN OFF CHAIR ALARM, ATTACH TO PANTS. LUNG SOUNDS ARE CLEAR, ON RA. EDEMA NOTED IN BILATERAL LE. SBA WITH FWW TO AMBULATE. VOIDING QS.
--- NOTE | 2017-02-04 06:23 | NUR ---
IN TO CHECK ON PT, PT SLEEPING. AM MEDICATIONS HELD UNTIL PT WAKES. RR EVEN AND UNLABORED. SIDE RAILS AND BED ALARM IN PLACE. CALL LIGHT IN REACH.
--- NOTE | 2017-02-04 07:20 | NUR ---
RECIEVED BEDSIDE REPORT FROM SHAHANA SMITH. PT SITTING UP AT EDGE OF BED, AWAKE, ALERT, DISORIENTED PER BASELINE. PLEASANT AND COOPERATIVE.
--- NOTE | 2017-02-04 08:35 | NUR ---
GAVE PT HER AM MEDICATIONS. PT DECLINED MIRALAX, REPORTED THAT SHE HAD LARGE AMOUNT OF LOOSE STOOL YESTERDAY. DENIED PAIN, DENIED SHORTNESS OF BREATH OR LIGHTHEADED OR DIZZINESS. PT DID NOT EAT BREAKFAST, STATED THAT THE [place]FF[place] WAS "SOGGY", NOT TOASTED WELL, AND THAT THE ORANGE SLICES LOOKED LIKE THEY WERE OLD AND SHRIVELLED. OFFERED TO PLACE NEW ORDER FOR BREAKFAST, OFFERED OPTIONS FOR OTHER FOOD OPTIONS. PT DECLINED TO ORDER ANYTHING ELSE FOR BREAKFAST. DAUGHTER IS GOING TO BRING PT A SMALL [place] DRINK. PT SITTING UP IN RECLINER, OXYGEN SATURATION LEVEL 93% ON 1L O2 VIA NC.
--- NOTE | 2017-02-04 08:42 | NUR ---
CHECKED ON PT-HE IS BORED. HAD A GOOD VISIT, PRAYED WITH HIM. WILL CONTINUE TO FOLLOW
--- NOTE | 2017-02-04 08:56 | NUR ---
Patient up to bathroom for BM and back to bed with bed alarm on. call button in reach. no other needs at this time.
--- NOTE | 2017-02-04 11:15 | NUR ---
PT SITTING UP IN RECLINER, DR. GEORGE IN TO SEE PT, DISCUSSED PLAN FOR PT TO DISCHARGE TO [facility] TODAY AROUND 1 OR 2 PM TODAY. PT VERBALIZED UNDERSTANDING, QUESTIONS ASKED AND ANSWERED. DENIED NEEDS.
[2017-02-04] MEDS ORDERED: TAMSULOSIN HCL0.4 MG PO (11:19)
[2017-02-04] MEDS ORDERED: KLOR-CON M1010 MEQ PO (11:20)
[2017-02-04] MEDS ORDERED: LASIX40 MG PO (11:21)
[2017-02-04] MEDS ORDERED: MIRALAX17 GM PO (11:21)
[2017-02-04] MEDS ORDERED: OMEPRAZOLE20 MG PO (11:22)
[2017-02-04] MEDS ORDERED: MELATONIN1 MG PO (11:22)
--- NOTE | 2017-02-04 11:43 | NUR ---
DR. GEORGE ORDERED FLU VACCINE FOR PT. MILI, PHARMACIST REQUESTED CLARRIFICATION, EARLIER DOCUMENTATION INDICATED PT HAD REPORTED AN ADVERSE REACTION TO THE FLU VACCINE. THIS RN SPOKE WITH PT, NOTIFIED HIM THAT DR. GEORGE HAD ORDERED A FLU VACCINE, AND ASKED PT IF HE HAD AN ALLERGY OR ADVERSE REACTION TO THE FLU VACCINE IN THE PAST. PT REPORTED THAT HE LAST HAD A FLU VACCINE 15 YEARS AGO, AND THAT THE VACCINE MADE HIM "DEATHLY SICK", AND THAT HE REFUSES TO TAKE THE FLU VACCINE. NOTIFIED DR. GEORGE AND MILI, PHARMACIST. PT WILL NOT RECIEVE FLU VACCINE.
--- NOTE | 2017-02-04 11:45 | NUR ---
PT MOTIONED ME IN. HE WAS SITTING IN HIS CHAIR. HE SAID THAT HE THINKS TODAY IS HIS LAST DAY, BUT DOESN'T KNOW WHERE HE IS GOING. HE EXPRESSED HOPE THAT HIS DOG CAN GO WITH HIM. TALKED ABOUT FOOTBALL, PT ALLOWED ME TO PRAY FOR HIM. HE EXPRESSED HIS APPRECIATION FOR THE CARE HE HAS RECEIVED AT [facility], AND SAID IT WILL BE HARD TO MATCH! WILL CONTINUE TO FOLLOW
--- NOTE | 2017-02-04 12:08 | NUR ---
PT SITTING UP IN RECLINER. UP TO BATHROOM WITH STANDBY ASSIST USING FWW TO VOID. BACK TO RECLINER AFTER USING BATHROOM. CHAIR ALARM ON. PT ATE 90% OF LUNCH. DENIED NEEDS.
--- NOTE | 2017-02-04 13:40 | NUR ---
PT'S SON AND DAUGHTER IN ROOM WITH PT, GAVE PT AND HIS FAMILY DISCHARGE TO HOME INSTRUCTIONS. PT, PT'S SON, AND PT'S DAUGHTER VERBALIZED UNDERSTANDING OF DISCHARGE INSTRUCTIONS. PT HAS NO IV ACCESS. PT WILL DISCHARGE TO [facility] VIA FAMILY MEMEBER'S PERSONAL VEHICLE. NIEVES, PHARMACIST IN WITH PT AND FAMILY, PROVIDING EDUCATION REGARDING DISCHARGE MEDICATIONS.
[2017-02-26] MEDS ORDERED: JANTOVEN3 MG PO (14:22)
[2017-03-12] MEDS ORDERED: FUROSEMIDE40 MG PO (15:04)
[2017-03-12] MEDS ORDERED: POTASSIUM CHLO10 ME2 PO (15:05)
== END 2017-02-04 13:55 | disposition home or self-care (01) | DRG 947 ==
LOC: MS 11:35
PROVIDERS: ADMIT Internal Medicine
DX: R53.81 Other malaise (principal); G93.41 Metabolic encephalopathy; I48.2 Chronic atrial fibrillation; I25.10 Atherosclerotic heart disease of native coronary artery without angina pectoris; N40.1 Benign prostatic hyperplasia with lower urinary tract symptoms; R33.8 Other retention of urine; E03.9 Hypothyroidism, unspecified; F03.90 Unspecified dementia, unspecified severity, without behavioral disturbance, psychotic disturbance, mood disturbance, and anxiety; Z66 Do not resuscitate; I25.2 Old myocardial infarction; N18.3 Chronic kidney disease, stage 3 (moderate)
CPT/HCPCS: 51798; 94668; 94760; 97110; 97116; 97165; 97530; 97535

== ENCOUNTER 2017-10-30 23:32 | Emergency (ER) | payer MEDICARE ==
[~2017-10-30] VITALS: Ht 185.4 cm; Wt 116.6 kg
[~2017-10-30 23:32] MED LIST changes: +COUMADIN3 MG PO; +FUROSEMIDE40 MG PO; +JANTOVEN3 MG PO; +MELATONIN1 MG PO; +MIRALAX17 GM PO; +OMEPRAZOLE20 MG PO; +POTASSIUM CHLO10 ME2 PO; +TAMSULOSIN HCL0.4 MG PO
--- NOTE | 2017-10-31 14:55 | EKG ---
[facility] [address] [place], [place] [address] Signed Atrial fibrillation Abnormal ECG When compared with ECG of 30-OCT-2017 23:37, (Unconfirmed) No significant change was found Confirmed by PALMER GEORGE MD ([id number]) on 10/31/2017 2:55:02 PM Electronically Signed By: PALMER GEORGE MD 10/31/17 1455 PATIENT NAME: MECCA BENAVIDES Electrocardiogram DATE OF : [birth year] PHYSICIAN: PALMER GEORGE MD REPORT #: [id number] REPORT IS CONFIDENTIAL AND NOT TO BE RELEASED WITHOUT AUTHORIZATION
--- NOTE | 2017-10-31 14:55 | EKG ---
[facility] [address] [place] [address] Signed Atrial fibrillation Abnormal ECG When compared with ECG of 21-JAN-2017 09:18, Vent. rate has decreased BY [address] no longer depressed in Lateral leads Nonspecific T wave abnormality no longer evident in Lateral leads Confirmed by PALMER GEORGE MD ([id number]) on 10/31/2017 2:54:58 PM Electronically Signed By: PALMER GEORGE MD 10/31/17 1455 PATIENT NAME: MECCA BENAVIDES Electrocardiogram DATE OF : [birth year] PHYSICIAN: PALMER GEORGE MD REPORT #: [id number] REPORT IS CONFIDENTIAL AND NOT TO BE RELEASED WITHOUT AUTHORIZATION
== END 2017-10-31 03:57 | disposition home or self-care (01) ==
LOC: ED 23:32
DX: M79.602 Pain in left arm (principal); M25.532 Pain in left wrist; M25.512 Pain in left shoulder; E03.9 Hypothyroidism, unspecified; I48.91 Unspecified atrial fibrillation; Z88.8 Allergy status to other drugs, medicaments and biological substances; Z88.0 Allergy status to penicillin; Z79.899 Other long term (current) drug therapy; Z79.01 Long term (current) use of anticoagulants
CPT/HCPCS: 80053; 81001; 84484; 85025; 85610; 93005; 93010; 96361; 96374; 96375; 99284; J2270; J2405; J7030

== ENCOUNTER 2018-07-17 04:51 | Emergency (ER) | payer MEDICARE ==
[~2018-07-17] VITALS: Ht 185.4 cm; Wt 102.1 kg
[~2018-07-17 04:51] MED LIST changes: +CITALOPRAM HBR20 MG PO; +MELATONIN3 MG PO; +METOPROLOL TART50 MG PO; +WARFARIN SODIUM3 MG PO
--- NOTE | 2018-07-17 07:56 | EKG ---
[facility] [address] [place] [address] Signed Atrial fibrillation Abnormal ECG When compared with ECG of 31-OCT-2017 00:13, No significant change was found Confirmed by ANDREW HANCOCK MD ([id number]) on 07/17/2018 7:56:31 AM Electronically Signed By: ANDREW HANCOCK MD 07/17/18 0756 PATIENT NAME: MECCA BENAVIDES Electrocardiogram DATE OF : [birth year] PHYSICIAN: ANDREW HANCOCK MD REPORT #: [id number] REPORT IS CONFIDENTIAL AND NOT TO BE RELEASED WITHOUT AUTHORIZATION
== END 2018-07-17 07:02 | disposition home or self-care (01) ==
LOC: ED 04:51
DX: R53.1 Weakness (principal); E03.9 Hypothyroidism, unspecified; I48.91 Unspecified atrial fibrillation; Z86.718 Personal history of other venous thrombosis and embolism; Z90.49 Acquired absence of other specified parts of digestive tract; Z88.0 Allergy status to penicillin; Z88.7 Allergy status to serum and vaccine; Z79.01 Long term (current) use of anticoagulants; Z79.82 Long term (current) use of aspirin; Z79.899 Other long term (current) drug therapy
CPT/HCPCS: 71045; 80053; 81001; 83735; 83880; 84484; 85025; 85610; 93005; 93010; 99285-25

== ENCOUNTER 2018-08-31 22:40 | Emergency (ER) | payer MEDICARE ==
[~2018-08-31] VITALS: Ht 185.4 cm; Wt 102.1 kg
[~2018-08-31 22:40] MED LIST changes: +OSELTAMIVIR PHO75 MG PO
[2018-08-31] MEDS ORDERED: KEFLEX500 MG PO (22:55)
[2018-08-31] MEDS ORDERED: LAMISIL AT12 G1 TOP (23:34)
== END 2018-08-31 23:55 | disposition home or self-care (01) ==
LOC: ED 22:40
DX: N50.89 Other specified disorders of the male genital organs (principal); E03.9 Hypothyroidism, unspecified; I48.91 Unspecified atrial fibrillation; Z86.718 Personal history of other venous thrombosis and embolism; Z90.49 Acquired absence of other specified parts of digestive tract; Z88.0 Allergy status to penicillin; Z88.7 Allergy status to serum and vaccine; Z79.01 Long term (current) use of anticoagulants; Z79.82 Long term (current) use of aspirin; Z79.899 Other long term (current) drug therapy
CPT/HCPCS: 99282

== ENCOUNTER 2020-02-13 17:41 | Inpatient (IN) | payer MEDICARE, OTHER ==
[~2020-02-13] VITALS: Ht 185.4 cm; Wt 104.6 kg
[~2020-02-13 17:41] MED LIST changes: -COUMADIN3 MG PO; +LAMISIL AT12 G1 TOP; -METOPROLOL TART50 MG PO; +WARFARIN SODIUM1 MG PO
--- NOTE | 2020-02-14 08:02 | EKG ---
[facility] [place] [facility] [address] [place] [address] Signed Undetermined rhythm Nonspecific ST and T wave abnormality Abnormal ECG When compared with ECG of 17-JUL-2018 05:16, Current undetermined rhythm precludes rhythm comparison, needs review Nonspecific T wave abnormality now evident in Lateral leads Confirmed by ANDREW HANCOCK MD ([id number]) on 02/14/2020 8:02:20 AM Electronically Signed By: ANDREW HANCOCK MD 02/14/20 0802 PATIENT NAME: MAKAYLA,MECCA ROJASONY Electrocardiogram DATE OF : 30 PHYSICIAN: ANDREW HANCOCK MD REPORT #: [id number] REPORT IS CONFIDENTIAL AND NOT TO BE RELEASED WITHOUT AUTHORIZATION
--- NOTE | 2020-02-15 19:01 | PATH ---
[facility] [address] [place], [place] [address] Signed ORDERING PHYSICIAN: Xander BLAIR, Santos Roberts PATIENT NAME: MECCA BENAVIDES JR GENDER: M : 1930 Prior History: No cases found. SPECIMEN(S): No Source Given MOLECULAR PATHOLOGY RESULTS: SARS-CoV-2 Not Detected ADDITIONAL NOTES.: The Clearwater Fusion SARS-CoV-2 Assay is a multiplex real-time PCR (RT-PCR) in vitro diagnostic test intended for the qualitative detection of RNA from SARS-CoV-2 from individuals who meet COVID-19 clinical and/or epidemiological criteria. In general, SARS-CoV-2 RNA can be detected during the acute phase of infection. Positive results indicate the presence of SARS-CoV-2 RNA. Clinical correlation with patient history and other diagnostic information is necessary to determine patient infection status. Positive results do not rule out bacterial infection or co-infection with other viruses. Negative results do not preclude SARS-CoV-2 infection and should not be used as the sole basis for patient management decisions. Negative results must be combined with other clinical observations, patient history, and epidemiological information. The Clearwater Fusion SARS-CoV-2 Assay is not yet approved or cleared by the [place] FDA. When there are no FDA-approved or cleared tests available, and other criteria are met, FDA can make tests available under an emergency access mechanism called an Emergency Use Authorization (EUA). The EUA for this test is supported by the [place] of Health and Human Service's (HHS's) declaration that circumstances exist to justify the emergency use of in vitro diagnostics for the detection and/or diagnosis of the virus that causes COVID-19. This EUA will remain in effect for the duration of the COVID-19 declaration justifying emergency of IVDs, unless it is terminated or revoked by FDA, after which the test may no longer be used. The Clearwater Fusion SARS-CoV-2 Assay is for use only under EUA PATIENT NAME: MECCA BENAVIDES PATHOLOGY DATE OF : [birth year] REPORT #: [id number] PHYSICIAN: MARK PATHOLOGY PCP: SHEKHAR MATHEW MD REPORT IS CONFIDENTIAL AND NOT TO BE RELEASED WITHOUT AUTHORIZATION [facility] [address] [place] [address] [place], [place] [address] Signed in [place] laboratories certified under the Clinical Laboratory Improvement Amendments of 1988 (CLIA) to perform high complexity tests. [facility] is certified under CLIA to perform high complexity clinical laboratory testing. PERFORMING LABORATORY.: Molecular testing was performed by [facility] [place] [address] (Pattern Lease Inspector: Cody Rodriguez D.O.; CLIA#: [id number]) Diagnostician: System Interface Pathologist Electronically Signed 02/15/2020 Copies: ~ PATIENT NAME: MECCA BENAVIDES JR PATHOLOGY DATE OF : [birth year] REPORT #: [id number] PHYSICIAN: MARK CALLEJAS PCP: SHEKHAR MATHEW MD REPORT IS CONFIDENTIAL AND NOT TO BE RELEASED WITHOUT AUTHORIZATION
--- NOTE | 2020-02-18 07:58 | OR ---
[facility] [address] [place], [place] [address] Signed DATE OF OPERATION: 02/17/2020 SURGEON: Mecca Adamson MD PREOPERATIVE DIAGNOSES: 1. Right pleural effusion. 2. Known atrial fibrillation and congestive heart failure. POSTOPERATIVE DIAGNOSES: 1. Right pleural effusion. 2. Known atrial fibrillation and congestive heart failure. PROCEDURE: Right thoracentesis 1.45 L, frankly bloody fluid. ANESTHESIA: 1% lidocaine. INDICATIONS: This 89-year-old white man is admitted by Dr. Meyer, and subsequently care assumed by Dr. Dowd for shortness of breath, elevated lactate, and a rather sizable right pleural effusion. He has improved somewhat, but the pleural effusion is considerable. A CT scan was performed, which showed a very large right pleural effusion with compression of the right lower and middle lobes. Thoracentesis has been requested for diagnosis and management. The risks of bleeding, infection, pneumothorax were reviewed with the patient, but also with his [id number]-pyxyjpgo, his daughter, Sarah Malagon, who agree. FINDINGS: Right pleural fluid was obtained without problem, 1.45 L was obtained, although I am sure more could have been obtained though the patient was at that point somewhat uncomfortable, wanted to have defecation with urge to void. His dementia contributed to his compliance issues. A postprocedure chest x-ray shows improvement of the pleural field, but there is in the right lower half of the lung still opacity either represent of loculation or persistent fluid (the latter likely). DESCRIPTION OF PROCEDURE: The patient was placed in the upright position with arms draped over a Jeffries stand. The right posterior thorax examined. The tip of the scapula was outlined with a pen and the area prepared with a chlorhexidine solution and draped sterilely. Using sterile Electronically Signed By: MECCA ADAMSON MD 02/18/20 0758 PATIENT NAME: MECCA BENAVIDES JR OPERATIVE REPORT DATE OF : 30 REPORT #: [id number] PHYSICIAN: MECCA ADAMSON MD PCP: SHEKHAR MATHEW MD REPORT IS CONFIDENTIAL AND NOT TO BE RELEASED WITHOUT AUTHORIZATION [facility] [address] [place], [place] [address] Signed technique including glove, gown, and so forth, 1% lidocaine was injected directly over the seventh rib near the tip of the scapula. A wheal was made and passage through the subcutaneous space to the seventh rib noted and directly over the top of the rib. Infiltration of anesthetic undertaken as well. Withdrawal showed some fluid as expected. Using a thoracentesis catheter, the pleural space was then interrogated and the needle withdrawn. A one way valve on the needle to allow for aspiration of alfa colored fluid, somewhat safer studies. A three-way stopcock was applied and using vacuum container bottles, 1.45 L of fluid was withdrawn. Towards the end of the second bottle aspiration, the patient was getting uncomfortable feeling the urge to void, although he had a Jiménez catheter and also need for defecation which he became less cooperative and further efforts at thoracentesis were abandoned. I am sure more fluid could have been obtained, however. The fluid was sent for cytologic studies in addition to chemistries and cultures. A Band-Aid was applied. A postprocedure chest x-ray shows no sign of pneumothorax. There is haziness in the right lower lung field consistent with persistent effusion and possible loculation, but is otherwise without sign of complication. Mecca Adamson MD /FREDISL /[id number] cc: MD Santos Kang MD Copies: ANDREW MEYER MD, BRIAN DO ~ Electronically Signed By: MECCA ADAMSON MD 02/18/20 0758 PATIENT NAME: MAKAYLAMECCAONY OPERATIVE REPORT DATE OF : 30 REPORT #: [id number] PHYSICIAN: MECCA ADAMSON MD PCP: SHEKHAR MATHEW MD REPORT IS CONFIDENTIAL AND NOT TO BE RELEASED WITHOUT AUTHORIZATION
--- NOTE | 2020-02-18 07:58 | CONS ---
[facility] [address] [place], [place] [address] Signed DATE OF CONSULTATION: 02/16/2020 CONSULTING PHYSICIAN: Mecca Adamson MD REQUESTING PHYSICIAN: Dr. Dowd. PROBLEM: Large right pleural effusion. HISTORY OF PRESENT ILLNESS: This elderly 89-year-old white man, was admitted to the hospital on February 12 after presentation to the emergency room with shortness of breath. He was initially seen by Dr. Adan and was considered to have decreased level of consciousness, which had severely worsened in recent times. He is known to have cardiac history of coronary artery disease and stent placement several years ago, but no known COVID-19 exposure. The patient has been isolated for four months due to viral pandemic at [facility]. Chest x-ray was performed, which showed a rather large right pleural effusion with right basilar opacity. Blood cultures and serum lactate were obtained. BNP was in the 500s. Lactic acid was elevated at 7.4. The admitting physician, Dr. Meyer noted he his acute hypoxic respiratory failure and large right pleural effusion and noted him chronically anticoagulated, thus less likely to have pulmonary emboli as the source of his hypoxemia. A rule out for COVID-19 was initiated and a poor prognosis was outlined and issues regarding resuscitation status reviewed with the family. His underlying chronic atrial fibrillation was noted as well as dementia. Supportive care was the general plan. The patient has improved somewhat clinically and the patient was given diuresis with Lasix and a Jiménez catheter placed. The effusion was considered cardiogenic based on his underlying known atrial fibrillation. Possible sepsis was identified. Blood cultures were drawn. An echocardiogram performed showed an ejection fraction of 40% with moderate pulmonary hypertension and left atrial dilation. He was considered to have possible myocardial infarction. Continued supportive care was maintained in the intensive care unit. The patient's care was assumed by the following hospitalist, Dr. Dowd, who had him undergo a chest CT scan. This showed a very large right pleural effusion. Some question of loculations, but to my examination. No such loculations. Only significant pleural effusion with collapse of the right lower and middle lobes. Some preservation of the right upper lobe. There is a smaller left pleural effusion. Electronically Signed By: MECCA ADAMSON MD 02/18/20 0758 PATIENT NAME: MECCA BENAVIDES CONSULTATION DATE OF : 30 REPORT #: [id number] PHYSICIAN: MECCA ADAMSON MD PCP: SHEKHAR MATHEW MD REPORT IS CONFIDENTIAL AND NOT TO BE RELEASED WITHOUT AUTHORIZATION [facility] [address] [place], [place] [address] Signed The patient is noted to have a white count of 4.7, hematocrit of 26, and platelet count of 206,000. An ABG days old, which showed a metabolic acidosis. Coag studies including today of an INR of 2.5, previously 1.8. Urinalysis, which was abnormal only for 5 red blood cells and a COVID test, which was said to be negative. REVIEW OF SYSTEMS: The patient is unable to communicate too much about his overall situation in part due to dementia. PHYSICAL EXAMINATION: GENERAL: Pleasant white man, who does respond to questions appropriately. He does have underlying dementia. His trachea is midline. There is no jugular venous distention. CHEST: Shows diminished respiratory excursion. VITAL SIGNS: Blood pressure is 99/81, pulse 104. ABDOMEN: Somewhat obese, but nondistended. I detect no ascites. IMAGING: Reviewed CT scan, which showed a considerable right-sided pleural effusion. The parenchyma of the lung, which is expanded, appears to be free of neoplasm. I see no evidence of trabeculation in the pleural space on my exam on contrast study. The left pleural space shows a small posterior effusion, but good expansion of the lung otherwise. ASSESSMENT: The patient has a sizable right pleural effusion, which may or may not be apparent, mild pneumonic effusion related to pneumonia, though I see no sign of true infiltrate. He may be symptomatically improved by thoracentesis alone. A chest tube would be a consideration. However, with elevated INR, I would be hesitant to initiate that level of intervention at this time. He is not in severe distress at the moment, though he is somewhat dyspneic and has little if any pulmonary reserve to provide for ambulation or anything of that level of activity. We will review with Dr. 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 MD SIERRA Tucker/FREDISL /[id number] Electronically Signed By: MECCA ADAMSON MD 02/18/20 0758 PATIENT NAME: MAKAYLAMECCA CONSULTATION DATE OF : 30 REPORT #: [id number] PHYSICIAN: MECCA ADAMSON MD PCP: SHEKHAR MATHEW MD REPORT IS CONFIDENTIAL AND NOT TO BE RELEASED WITHOUT AUTHORIZATION [facility] [address] [place], [place] [address] Signed cc: MD Shekhar Garcia MD Cynthia Rasch, MD Copies: ADRIEL DOWD JONATHAN MD RASCH, CYNTHIA MD ~ Electronically Signed By: MECCA ADAMSON MD 02/18/20 0758 PATIENT NAME: MECCA BENAVIDES CONSULTATION DATE OF : [birth year] REPORT #: [id number] PHYSICIAN: MECCA ADAMSON MD PCP: SHEKHAR MATHEW MD REPORT IS CONFIDENTIAL AND NOT TO BE RELEASED WITHOUT AUTHORIZATION
--- NOTE | 2020-02-22 15:17 | OR ---
[facility] [address] [place], [place] [address] Signed DATE OF OPERATION: 02/20/2020 SURGEON: Mecca Adamson MD PREOPERATIVE DIAGNOSES: Persistent right pleural effusion; previous thoracentesis showing transudative hemorrhagic effusion, negative cytology, multiple white cells, negative culture. POSTOPERATIVE DIAGNOSIS: Hemorrhagic right pleural effusion. PROCEDURE: Thoracentesis, 750 mL total. ANESTHESIA: 1% lidocaine. INDICATIONS: This 89-year-old white man, who has been in the hospital since 02/13/2020 right pleural effusion. He underwent right thoracentesis by me on February 17, 2020, which delivered 1.45 L of alfa fluid. FINDINGS: Ultimately showed an exudative effusion, but no sign of organisms and multiple white cells were noted. Cytology was performed showing no sign of malignancy. Consideration has been made for additional thoracentesis since the patient is rather intolerant of the procedure previously and incomplete clearance of the pleural space was noted. The patient does have history of congestive heart failure on atrial fibrillation, but with an exudative effusion that as the underlying etiology is less likely. I have conferred with his primary provider in the community, Dr. Coats as well as Dr. Dowd, for which thoracentesis will be once again undertaken, possibly better tolerated this time (previously extraneous tissues including need to go to the bathroom, etc.) precluded complete thoracentesis at that time. The risks of bleeding, infection, pneumothorax, and so forth were reviewed with him, but also with his son, Jesse, who attends to him today. They understand and wished to proceed. A bloody pleural effusion was once again noted. Only 750 mL of fluid were removed on this occasion, simply was no more fluid coming through. I am sure there is certainly more fluid in the pleural space, but this was all that could be removed at this time. Electronically Signed By: MECCA ADAMSON MD 02/22/20 1517 PATIENT NAME: MECCA BENAVIDES OPERATIVE REPORT DATE OF : 30 REPORT #: [id number] PHYSICIAN: MECCA ADAMSON MD PCP: SHEKHAR COATS MD REPORT IS CONFIDENTIAL AND NOT TO BE RELEASED WITHOUT AUTHORIZATION [facility] [address] [place], [place] [address] Signed DESCRIPTION OF PROCEDURE: With the patient in the upright position with the arms draped over a Jeffries stand, the right posterior thorax was once again examined and prepared with a chlorhexidine solution and draped sterilely. A 1% lidocaine was injected over probably the seventh rib based on anatomic features including the tip of the scapula. The pleural space initially was not easily encountered, and therefore the puncture site to move laterally a bit. This allowed for a pleural space interrogation, ans aspiration of alfa appearing fluid. Using thoracentesis catheter kit, the pleural space was carefully entered and the angio catheter advanced once the pleural space was encountered. Aspiration showed hemorrhagic thin fluid. A three-way stopcock was used and attachment to a vacuum tender bottle undertaken and hemorrhagic pleural fluid was noted. It was not completely hemorrhagic, at some points it was merely alfa in color. Various maneuvers were made to improve the flow of the fluid, but ultimately only 750 mL of fluid was returned. He suffered no complication, and the catheter was ultimately removed and no further fluid could be obtained despite various manipulations of the catheter and manual aspiration. A Band-Aid was applied. A chest x-ray is pending. MD SIERRA Tucker/FREDISL /[id number] cc: MD Santos Rodriguez MD Copies: SHEKHAR COATS MD, BRIAN DO ~ Electronically Signed By: MECCA ADAMSON MD 02/22/20 1517 PATIENT NAME: MAKAYLAMECCA OPERATIVE REPORT DATE OF : 30 REPORT #: [id number] PHYSICIAN: MECCA ADAMSON MD PCP: SHEKHAR COATS MD REPORT IS CONFIDENTIAL AND NOT TO BE RELEASED WITHOUT AUTHORIZATION
== END 2020-02-21 01:45 | DRG 871 ==
LOC: ED 17:41 → CCU 19:37
PROVIDERS: ADMIT Internal Medicine; ATTEND Internal Medicine
PROC: 3E033XZ Introduction of Vasopressor into Peripheral Vein, Percutaneous Approach (ICD-10-PCS; 2020-02-14)
PROC: 0W993ZX Drainage of Right Pleural Cavity, Percutaneous Approach, Diagnostic (ICD-10-PCS; principal; 2020-02-17)
PROC: 0W9930Z Drainage of Right Pleural Cavity with Drainage Device, Percutaneous Approach (ICD-10-PCS; 2020-02-20)
DX: A41.9 Sepsis, unspecified organism (principal); J96.01 Acute respiratory failure with hypoxia; I21.A1 Myocardial infarction type 2; I50.23 Acute on chronic systolic (congestive) heart failure; J18.9 Pneumonia, unspecified organism; J91.8 Pleural effusion in other conditions classified elsewhere; R65.20 Severe sepsis without septic shock; Z20.828 Contact with and (suspected) exposure to other viral communicable diseases; E03.9 Hypothyroidism, unspecified; I48.0 Paroxysmal atrial fibrillation; F03.90 Unspecified dementia, unspecified severity, without behavioral disturbance, psychotic disturbance, mood disturbance, and anxiety; N18.30 Chronic kidney disease, stage 3 unspecified; I25.10 Atherosclerotic heart disease of native coronary artery without angina pectoris; F39 Unspecified mood [affective] disorder; N40.1 Benign prostatic hyperplasia with lower urinary tract symptoms; R33.8 Other retention of urine; R74.02 Elevation of levels of lactic acid dehydrogenase [LDH]; Z66 Do not resuscitate; Z95.5 Presence of coronary angioplasty implant and graft; Z86.718 Personal history of other venous thrombosis and embolism; Z88.0 Allergy status to penicillin; Z88.7 Allergy status to serum and vaccine
CPT/HCPCS: 36415; 36600; 51702; 71045; 71046; 71260; 80048; 80053; 81001; 82803; 82945; 83605; 83615; 83735; 83880; 83986; 84100; 84155; 84157; 84484; 85025; 85610; 85651; 87040; 87070; 87075; 87205; 88112; 88305; 89051; 93005; 93306; 97110; 97162; 97165; 97530; 99285-25; C9113; C9803; J0456; J0696; J1940; J2060; J2405; J3430; J3475; J7030; J7040; J7060; J7121; Q9967